=== PATIENT | female | born 1960 | race Caucasian/White ===

== ENCOUNTER 2020-02-29 12:04 | Outpatient (CLI) | payer BC, SELFPAY ==
--- NOTE | 2020-02-29 12:08 | XR_ITS ---
WS: [id number] RIGHT KNEE: 3 VIEW(S) TECHNIQUE: AP, oblique(s) and lateral. HISTORY: ACUTE PAIN OF RIGHT KNEE COMPARISON: None available. No fracture or dislocation. Mild narrowing of all 3 compartments. Lucency in the posterior superior surface of the patella. Small suprapatellar joint effusion. No soft tissue abnormality. XR/XR knee RT 3V* [id number] IMPRESSION: 1. Mild tricompartment osteoarthritis. 2. Osteochondral lesion superior posterior surface of the patella and small smitha int effusion.
== END 2020-02-29 12:05 | disposition home or self-care (01) ==
LOC: RADWPI 12:08
PROVIDERS: Visit Provider Nurse Practitioner Family
DX: M17.11 Unilateral primary osteoarthritis, right knee (principal); M25.861 Other specified joint disorders, right knee; M25.461 Effusion, right knee
CPT/HCPCS: 73562

== ENCOUNTER 2020-04-10 14:04 | Outpatient (CLI) | payer BC, SELFPAY ==
--- NOTE | 2020-04-10 14:22 | XRR_ITS ---
PROCEDURE INFORMATION: Exam: XR Right Knee Exam date and time: 04/10/2020 2:39 PM Age: 59 years old Clinical indication: Pain; Knee; Right; Additional info: Knee pain TECHNIQUE: Imaging protocol: XR Right knee. Views: Frontal, lateral, and oblique views. COMPARISON: CR XR knee RT 3V* [id number] 02/29/2020 12:13 PM FINDINGS: Bones/joints: Mild lateral compartment predominate narrowing. Small-moderate knee joint effusion. Soft tissues: Normal. XR/XR knee RT 3V* [id number] IMPRESSION: 1. Lateral compartment chondromalacia or meniscal degeneration. 2. Small-moderate knee joint effusion.
== END 2020-04-10 14:05 | disposition home or self-care (01) ==
LOC: RAD 14:08
PROVIDERS: Visit Provider Specialist
DX: M25.561 Pain in right knee (principal); M25.461 Effusion, right knee
CPT/HCPCS: 73562

== ENCOUNTER 2020-04-18 11:42 | Outpatient (CLI) | payer BC, SELFPAY ==
--- NOTE | 2020-04-18 11:45 | MR_ITS ---
WS: [id number] MRI RIGHT KNEE HISTORY: M25.561 Pain in right knee COMPARISON: 04/10/2020 Anterior cruciate ligament: Intact. Posterior cruciate ligament: Intact. Medial collateral ligament: Increased T2 signal surrounding the MCL. No full-thickness tear. Posterior lateral corner structures: Increase fluid surrounding the popliteus tendon. Medial menisci: Intact. Normal signal, size and shape. Lateral meniscus: Horizontal tear in the posterior horn extends to the inferior articular surface. Th ere is increased T2 signal diffusely throughout the anterior horn. The meniscus is partially extruded from the joint line. Extensor mechanism: Distal quadriceps tendon and patellar tendons are intact. Fluid and soft tissue: Large suprapatellar joint effusion. There is soft tissue edema surrounding the knee. Large lobulated complex Leger's cyst. Osseous and articular structures: Patellofemoral compartment: Loss of cartilage over the patellar eminence and portions of the medial a nd lateral facet. Subchondral edema at the patellar eminence. No fracture. Medial compartment: Mild medial compartment. Mild thinning of the cartilage. Lateral compartment: Moderate narrowing of the lateral compartment. Loss of cartilage. Full thickness cartilage defect along the surface of the femoral condyle with the findings millimeters. There is ad ditional marrow edema in the lateral tibial plateau. MR/MR knee RT wo con* [id number] IMPRESSION: 1. Moderate internal derangement lateral compartment with loss of cartilage, s ubchondral edema and joint space narrowing. Meniscus is partially extruded from the joint. 2. Horizontal tear posterior horn lateral meniscus to the inferior articular s urface. 3. Large suprapatellar joint effusion. 4. Large complex Leger's cyst. 5. Mild MCL sprain. 6. Fluid surrounding the popliteus tendon but no tear appreciated. 7. Moderate chondromalacia patella and subchondral edema near the patellar elie nence.
== END 2020-04-18 11:43 | disposition home or self-care (01) ==
LOC: RADSHAW 11:44
PROVIDERS: PCP Nurse Practitioner Family; Visit Provider Specialist
DX: R60.0 Localized edema (principal); S83.281A Other tear of lateral meniscus, current injury, right knee, initial encounter; M25.461 Effusion, right knee; M71.21 Synovial cyst of popliteal space [Baker], right knee; S83.411A Sprain of medial collateral ligament of right knee, initial encounter; M22.41 Chondromalacia patellae, right knee; X58.XXXA Exposure to other specified factors, initial encounter
CPT/HCPCS: 73721

== ENCOUNTER 2020-04-25 13:09 | Outpatient (CLI) | payer BC, SELFPAY | END 2020-04-25 13:10 | disposition home or self-care (01) | LOC: SPT 13:10 | PROVIDERS: PCP Nurse Practitioner Family; Visit Provider Specialist | DX: Z46.89 Encounter for fitting and adjustment of other specified devices (principal); M17.11 Unilateral primary osteoarthritis, right knee | CPT/HCPCS: 97760; L1812 ==

== ENCOUNTER 2020-05-08 06:00 | Outpatient (RCR) | payer BC, SELFPAY | END 2020-05-29 23:59 | disposition home or self-care (01) | LOC: APT 06:00 | PROVIDERS: PCP Nurse Practitioner Family; Referring Provider Specialist; Visit Provider Specialist | DX: M17.11 Unilateral primary osteoarthritis, right knee (principal) | CPT/HCPCS: 97110; 97161 ==

== ENCOUNTER 2020-05-22 09:00 | Outpatient (CLI) | payer BC, SELFPAY ==
[2020-05-22 10:23] VITALS: BMI 36.6
--- NOTE | 2020-05-22 10:50 | ANES.PREANE2 ---
Pre-Anesthetic Assessment Pre-Anesthetic Assessment: Height/Weight: Height 1.68 m Weight 102.965 kg Preop Diagnosis: DJD right knee Proposed Procedure: Operation Date: 06/04/20 10:50 Proposed Procedures p Total Knee Arthroplasty 12248 M17.11(Right) - Padmini Sosa MD Familial anesthetic complications: None Social: Social History: Tobacco and No alcohol Exam: Pre-Anes Outpt Exam: alert, oriented x 3, clear to auscultation bilaterally and regular rate & rhythm Airway: Cervical ROM: WNL (extension sometimes induces vertigo) MP: 2 Dentition: Other (one missing) Pulmonary: Pulmonary: COPD CV/HEM: CV/HEM: HTN Musc/skel: Musc/skel: OA/DJD Comments: neck pain, arm pain at night d/t positioning Anesthetic Plan: ASA status: 2 Anesthesia: General and Regional (specify below) Risk of > 500 ml blood loss (7ml/kg in children): No PFSH Anesthesia PFSH: Medical History (Updated 05/20/20 @ 12:54 by Padmini Sosa MD) COPD (chronic obstructive pulmonary disease) Hypertension Surgical History History of partial hysterectomy Hx of knee surgery Family History Mother Hypertension Father Hypertension Social History Smoking and tobacco status: current every day smoker Alcohol intake: current Data Anesthesia Cardiac Studies: No Data to Display
[2020-05-22 10:55] LABS: Basophils # 0.1 10^3/uL (0.0-0.1); Basophils % 0.7 %; Eosinophils # 0.2 10^3/uL (0.0-0.8); Eosinophils % 2.2 %; Hemoglobin 15.5 g/dL (11.5-15.3); Lymphocytes # 2.4 10^3/uL (0.8-4.8); Lymphocytes % 23.9 %; Mean Corpuscular Hemoglobin 31.5 pg (28.0-34.0); Mean Corpuscular Volume 95.5 fL (81-99); Mean Platelet Volume 8.6 fL (7.4-10.4); Monocytes % 10.1 %; Neutrophils # 6.27 10^3/uL (1.8-7.7); Neutrophils % 62.7 %; Nucleated Red Blood Cells % 0 %; Platelet Count 297 10^3/cmm (130-400); Red Blood Count 4.92 10^6/uL (4.1-5.3); Red Cell Distribution Width 11.9 % (12.1-15.1)
[2020-05-22 11:12] LABS: Alanine Aminotransferase 19 U/L (0-33); Albumin Level 4.4 g/dL (3.5-5.2); Alkaline Phosphatase 73 IU/L (35-105); Aspartate Amino Transferase 15 U/L (0-32); Blood Urea Nitrogen 11 mg/dL (8-23); Calcium 10.1 mg/dL (8.5-10.5); Carbon Dioxide 27 mmol/L (22-29); Chloride 101 mmol/L (98-107); Globulin 2.6 g/dL (1.3-4.6); Glomerular Filtration Rate 85.4 mL/min (90-130); Glucose 91 mg/dL (65-115); Osmolality Calculated 285 mOsm/kg (285-295); Sodium 138 mmol/L (136-145); Total Bilirubin 0.4 mg/dL (0.15-1.2)
--- NOTE | 2020-06-02 17:57 | SUR.PREOP ---
Patient called today and stated that she was going to have to cancel surgery due to her grand daughter that lives with her tested positive for covid, i stated that i would relay the message tomorrow with dr crews's office and patient stated that she left a message today on the office's answering machine
== END 2020-05-22 09:01 | disposition home or self-care (01) ==
LOC: OPS 04-10 16:22
PROVIDERS: PCP Nurse Practitioner Family; Visit Provider Specialist
DX: M17.11 Unilateral primary osteoarthritis, right knee (principal); J44.9 Chronic obstructive pulmonary disease, unspecified; I10 Essential (primary) hypertension; F17.210 Nicotine dependence, cigarettes, uncomplicated; Z53.8 Procedure and treatment not carried out for other reasons
CPT/HCPCS: 36415; 80053; 85025

== ENCOUNTER → 2020-05-24 12:05 | Outpatient (BNVA) | payer BC, SELFPAY | PROVIDERS: PCP Nurse Practitioner Family; Visit Provider Specialist | DX: M17.11 Unilateral primary osteoarthritis, right knee (principal); R39.9 Unspecified symptoms and signs involving the genitourinary system | CPT/HCPCS: 80053; 81000; 87081 ==

== ENCOUNTER → 2020-05-31 11:08 | Outpatient (BNVA) | payer BC, SELFPAY | PROVIDERS: PCP Nurse Practitioner Family; Visit Provider Specialist | DX: Z11.59 Encounter for screening for other viral diseases (principal) | CPT/HCPCS: 87635 ==

== ENCOUNTER → 2020-07-01 12:20 | Outpatient (BNVA) | payer BC, SELFPAY | PROVIDERS: PCP Nurse Practitioner Family; Visit Provider Specialist | DX: Z11.59 Encounter for screening for other viral diseases (principal) | CPT/HCPCS: 73560; 73565; 80053; 87081 ==

== ENCOUNTER → 2020-07-04 11:33 | Outpatient (BNVA) | payer BC, SELFPAY | PROVIDERS: PCP Nurse Practitioner Family; Visit Provider Specialist | DX: Z11.59 Encounter for screening for other viral diseases (principal) | CPT/HCPCS: 87635 ==

== ENCOUNTER 2020-07-09 10:46 | Observation (INO) | payer BC, SELFPAY ==
[2020-07-03 10:22] VITALS: BMI 36.6
[2020-07-03 10:46] LABS: Basophils # 0.1 10^3/uL (0.0-0.1); Basophils % 0.6 %; Eosinophils # 0.2 10^3/uL (0.0-0.8); Eosinophils % 1.7 %; Hematocrit 46.2 % (37.0-47.0); Hemoglobin 15.8 g/dL (11.5-15.3); Lymphocytes # 2.4 10^3/uL (0.8-4.8); Lymphocytes % 25.1 %; Mean Corpuscular HGB Conc 34.2 g/dL (30.0-36.0); Mean Corpuscular Hemoglobin 31.3 pg (28.0-34.0); Mean Corpuscular Volume 91.7 fL (81-99); Mean Platelet Volume 8.6 fL (7.4-10.4); Monocytes # 1.1 10^3/uL (0.2-0.9); Monocytes % 11.2 %; Neutrophils # 5.72 10^3/uL (1.8-7.7); Neutrophils % 61.2 %; Nucleated Red Blood Cells % 0 %; Platelet Count 317 10^3/cmm (130-400); Red Blood Count 5.04 10^6/uL (4.1-5.3); Red Cell Distribution Width 11.8 % (12.1-15.1); White Blood Count 9.4 10^3/uL (4.0-10.0)
[2020-07-03 11:01] LABS: Alanine Aminotransferase 23 U/L (0-33); Albumin Level 4.3 g/dL (3.5-5.2); Alkaline Phosphatase 82 IU/L (35-105); Anion Gap 14.1 (5-19); Aspartate Amino Transferase 21 U/L (0-32); Blood Urea Nitrogen 11 mg/dL (8-23); Carbon Dioxide 28 mmol/L (22-29); Chloride 96 mmol/L (98-107); Globulin 2.6 g/dL (1.3-4.6); Glomerular Filtration Rate 85.1 mL/min (90-130); Glucose 123 mg/dL (65-115); Osmolality Calculated 279 mOsm/kg (285-295); Potassium 4.1 mmol/L (3.5-5.1); Sodium 134 mmol/L (136-145); Total Bilirubin 0.5 mg/dL (0.15-1.2); Total Protein 6.9 g/dL (6.6-8.7)
--- NOTE | 2020-07-03 11:16 | ANES.PREANE2 ---
Pre-Anesthetic Assessment Pre-Anesthetic Assessment: Height/Weight: Height 1.68 m Weight 102.965 kg Preop Diagnosis: DJD right knee Proposed Procedure: Operation Date: 07/09/20 07:00 Proposed Procedures p Total Knee Arthroplasty 29862 M17.11(Right) - Padmini Sosa MD Familial anesthetic complications: None Social: Social History: Tobacco and No alcohol Exam: Pre-Anes Outpt Exam: alert, oriented x 3, clear to auscultation bilaterally and regular rate & rhythm Airway: Cervical ROM: WNL MP: 1 Dentition: Full Pulmonary: Pulmonary: COPD CV/HEM: CV/HEM: HTN Musc/skel: Musc/skel: OA/DJD Anesthetic Plan: ASA status: 3 Anesthesia: General and Regional (specify below) (adductor) Risk of > 500 ml blood loss (7ml/kg in children): No PFSH Anesthesia PFSH: Medical History COPD (chronic obstructive pulmonary disease) Hypertension Surgical History History of partial hysterectomy Hx of knee surgery Family History Mother Hypertension Father Hypertension Social History Smoking and tobacco status: current every day smoker Alcohol intake: current Data Anesthesia CBC & Chem 7: 07/03/20 10:35 07/03/20 10:35 Other Labs: Laboratory Results - last 48 hr 07/03/20 07/03/20 10:35 10:35 WBC 9.4 RBC 5.04 Hgb 15.8 H Hct 46.2 MCV 91.7 MCH 31.3 MCHC 34.2 RDW 11.8 L Plt Count 317 MPV 8.6 Neut % (Auto) 61.2 Lymph % (Auto) 25.1 Mccormick % (Auto) 11.2 Eos % (Auto) 1.7 Baso % (Auto) 0.6 Neut # (Auto) 5.72 Lymph # (Auto) 2.4 Mccormick # (Auto) 1.1 H Eos # (Auto) 0.2 Baso # (Auto) 0.1 Nucleated RBC % (auto) 0 Nucleated RBCs # 0.0 Sodium 134 L Potassium 4.1 Chloride 96 L Carbon Dioxide 28 Anion Gap 14.1 BUN 11 Creatinine 0.7 GFR Calculation 85.1 L Glucose 123 H Calculated Osmolality 279 L Calcium 10.0 Total Bilirubin 0.5 AST 21 ALT 23 Alkaline Phosphatase 82 Total Protein 6.9 Albumin 4.3 Globulin 2.6 Cardiac Studies: No Data to Display
[2020-07-09] VITALS (28 sets, daily range): BP systolic 103–143; BP diastolic 60–87; PULSE 68–85; RESP 16–185; TEMP 36.4–37.1; O2SAT 91–99
[2020-07-09] MEDS: CELEcoxib 200 mg Capsule 400 MG PO (07:03)
[2020-07-09] MEDS: sodium chloride 0.9% 1,000 ML 30 ML IV (07:04)
[2020-07-09] MEDS: vancomycin 1,000 MG in sodium chloride 0.9% 250 ML 250 MG IV (07:10)
[2020-07-09] MEDS: midazolam 1 mg/mL INJ 2 mL 2 MG IVP (07:25)
--- NOTE | 2020-07-09 07:25 | P.ANESUD_ITS ---
Pre-Anesthetic Update Pre-Anesthetic Assessment: Date of Surgery/Procedure: 07/09/20 Preop Betsy gnosis: DJD right knee Proposed Procedure: Operation Date: 07/09/20 07:00 Proposed Procedures p Total Knee Arthroplasty 23720 M17.11(Right) - Padmini Sosa MD Any changes to Pre-Anesthetic Assessment?: No Last Intake: Intake Last Liquid Date 07/08/20 Last Liquid Time 23:00 Last Solid Date 07/08/20 Last Solid Time 19:00 Vitals: Temperature 97.6 F 07/09/20 06:50 Temperature Source Temporal Artery S can 07/09/20 06:50 Pulse Rate 72 07/09/20 06:50 Respiratory Rate 18 07/09/20 06:50 Blood Pressure 130/85 07/09/20 06:50 Blood Pressure Melody n 100 07/09/20 06:50 Pulse Oximetry 95 07/09/20 06:50 Oxygen Delivery Me thod 07/09/20 06:50 Exam: Pre-Anes Outpt Exam: alert, oriented x 3, clear to auscultation bilaterally and regular rate & rhythm Cardiac Studies: No Data to Display
--- NOTE | 2020-07-09 07:37 | PC.NURSE ---
0725 Time out done for nerve block for right total knee surgery. O2 on at 2L per [place], cardiac specialist on, and O2 sat probe on. Vital signs remained stable throughout procedure.
--- NOTE | 2020-07-09 07:53 | ANES.PROC ---
Anesthesia Procedures Procedure/Date: 07/09/20 Nerve Block ^: Nerve Block 1: Main Anesthesia: general anesthesia Time Out Performed: Yes Consent: requested by attending/covering physician, from patient, from other, risks and benefits reviewed, patient agrees to proceed and emergency procedure Nerve block location: adductor canal (R) Anesthesia monitors applied: pulse oximetry, EKG, BP cuff and oxygen Nerve block position: supine Anesthetic Used: ropivicaine 0.5% and with decadron (4 mg) Amount of anesthesia used (mL): 30 Ultrasound used to: visualize and ID femerol nerve Nerve Stimulator Used?: No Interscalene/Femoral BLK: 4 stimuplex 21 g needle used for position and inplane approach, visualize local anesthetic spread and no vascular puncture identified Injection: neg aspiration of heme and paresthesia +/- Patient Tolerated Procedure: well and no complications Complications: none
--- NOTE | 2020-07-09 07:58 | W.PM.OPSUD ---
Surgery/Procedure H&P Update DATE OF PROCEDURE: July 09, 2020 DATE H&P PERFORMED: 07/01/20 H&P UPDATE INFORMATION: I have reviewed H&P completed within last 30 days, I have examined patient prior to procedure, No changes to prior documentation and H&P is in [facility] EMR on date indicated PREOP DIAGNOSIS: DJD right knee PLANNED PROCEDURE: Operation Date: 07/09/20 07:00 Proposed Procedures p Total Knee Arthroplasty 78881 M17.11(Right) - Padmini Sosa MD Related Problem List Diagnoses (1) Primary osteoarthritis of right knee:
[2020-07-09] MEDS: vancomycin 1,000 MG SDV 1000 MG IRRIGATION ×2 (08:44→08:46)
[2020-07-09] MEDS: vancomycin 1,000 MG SDV 1000 MG XX (08:45)
--- NOTE | 2020-07-09 10:05 | SUR.OPER ---
Family Notified Of Patient's Status Via Phone.
[2020-07-09] MEDS: fentaNYL 50 mcg/mL INJ 2mL IVP ×2 (10:41→10:57)
--- NOTE | 2020-07-09 10:45 | XR_ITS ---
WS: [id number] XR knee RT 3V* [id number] REASON FOR EXAM: Status post total knee arthroplasty FINDINGS: Total right knee arthroplasty. Parts of the surgical appliance are in proper position and alignment. There is no significant bony abnormality. XR/XR knee RT 3V* [id number] IMPRESSION: Total right knee arthroplasty without significant abnormality.
--- NOTE | 2020-07-09 10:53 | P.OP_ITS ---
Operative Report Date of procedure: July 09, 2020 Pre-op Diagnosis: Primary osteoarthritis right knee Post-op diagnosis: same Post-op Findings: Significant degenerative osteoarthritis of the right knee Procedure Done: Right total knee arthroplasty Implants: The [place] total knee system with a size 4 triathlon beaded posterior stabilized femur right, a triathlon titanium tibial component size 4 beaded, a triathlon X3 posterior stabilized tibial bearing insert size 4 x 13 mm and a beaded triathlon titanium asymmetric patella size 32 x 10 mm Specimens removed/disposition: Bone, disposed of Pathology: none sent Surgeon: Padmini Sosa Leadership Development Manager: [facility] OR technicians Anesthesia: General (Intubated, ASA 3 with regional block) Estimated blood loss (mL): 25 Tourniquet time (min): 107 Tourniquet time: At 250 mmHg IV fluids (mL): 1,300 Urine output (mL): 100 Complications: None Findings: Significant degenerative osteoarthritis with large osteophytes Condition: stable Disposition: PACU (Then to floor for postoperative rehabilitation and pain management) Brief History: This 60-year-old woman presented with complaints of severe right knee pain. X- ray findings were consistent with severe degenerative osteoarthritis of the right knee. The patient was unresponsive to conservative measures, and she wished to proceed with total knee arthroplasty. Risks and complications were discussed with her. Preoperatively, consents were signed. The questions were answered. The patient was comfortable with the process and wished to proceed. Procedure: The patient was brought to the operating theater, and after undergoing adequate general intubated anesthesia with supplemental regional block, ASA3, the right lower extremity was prepped with Dura-Prep and draped in usual fashion following placement of a tourniquet high on the leg. The leg was then draped free. Following prepping and draping, the leg was exsanguinated, and the tourniquet was elevated to 250 mmHg for a total tourniquet time of 107 minutes. Prior to elevation of the tourniquet, but following exposure of the site of surgery, a surgical pause was performed. At the time of the surgical pause, we confirmed the site and side of surgery. Additionally, we confirmed the appropriate and timely administration of preoperative antibiotics, vancomycin 1 g and transexemic acid 1 g. The availability of equipment was confirmed, and the patient's identity was verbalized as well. Following the surgical pause, an incision was made centering over the patella continuing proximally and distally as necessary to allow access to the knee joint. Dissection continued through skin and soft tissues using a scalpel. Hemostasis was obtained using electrocautery. The skin incision was followed by a median parapatellar arthrotomy. The leg was extended and the patella was everted. Following this, the leg was returned to flexed position. The distal femur was exposed and a drill hole was made in this for placement of the distal femoral jig. The distal femoral jig was set at 5? of valgus. The distal femoral cutting block was then placed in appropriate position, and an margaret wing was used to confirm an appropriate amount of distal femur would be resected. The distal femoral resection was accomplished with 8 mm of bone being resected distally. After the distal femoral resection had been accomplished, the femur was measured and it measured a size 4. Medial lateral dimension also measured a size 4. A size 4 femoral cutting block was placed in position, and we were then able to accomplish the anterior, posterior and chamfer cuts. This jig was then removed and the notch guide was placed in position. With the notch guide in appropriate position, the notch was excised including resection of the anterior and posterior cruciate ligaments. This notch was to allow for the posterior stabilized femoral component. At this point, the femur was prepared and attention was directed to the proximal tibia. The posterior knee retractor was placed along with medial and lateral retractors. Further resection of the menisci was accomplished as we had better visualization. A complete meniscectomy was performed both medially and laterally with care being taken to protect the popliteus. Retractors were then placed so that the proximal tibia was well visualized. A drill hole was then made in the tibia for placement of the intramedullary guide. This guide was placed so that approximately 2 mm of bone would be resected from the deficient medial tibial plateau. The intramedullary guide was utilized supplemented with an extramed ullary guide to assure appropriate alignment for the proximal tibial resection. The proximal tibial jig was then evaluated, pinned in position, and the proximal tibial resection was accomplished without difficulty. The jig was removed and the proximal tibia was measured. It measured a size 4. We then attempted a trial reduction with a size 4 by 11 mm insert. This was felt to be too loose. Trial reduction was then once again accomplished with a size 4 x 13 mm posterior stabilized insert. The femoral component was placed in position for the trial reduction, and the knee was placed through range of motion. There was excellent stability with excellent varus-valgus alignment with appropriate patellar tracking. This was felt to be the appropriate size insert. There was full extension and flexion without lift off and the rotation of the tibia was marked. Alignment was checked from the hip to the ankle, and this was noted to be appropriate as well. Attention was then directed to the patella. The patella was measured with a caliper. We resected sufficient patella to leave approximately 14 mm of patella remaining. Measurements of the patella then indicated that a size asymmetric 32 mm x 10 mm was the appropriate patellar size. We then placed the jig to drill for the 3 pegs of the press-fit patella, and these drill holes were made without incident. A trial patella was then placed, and the knee was placed through range of motion. The patella was noted to track nicely without evidence of subluxation. The femur was prepared for a press-fit femur by drilling 2 holes for the femoral pegs. All trial components were subsequently removed. The tibial tray was then pinned into position, and we broached the tibia for the stem of the tibial component. Subsequently, 4 drill holes were made for placement of the press-fit tibia. This was accomplished without difficulty. Care was taken to assure appropriate rotation of the tibia as well as appropriate position on the proximal tibia. The tibial tray was completely seated on the proximal tibia. Following broaching, the tibial guide was removed, and all surfaces were copiously irrigated. The surfaces were then dried and a bone plug was placed into the distal femur. Exparel was also injected at this point. The Tritanium tibia was impacted into position. The beaded femur was then impacted into position in a cementless fashion. The tibial insert was placed. The patella was pressed into position with a patellar clamp. The knee was irrigated with 20 mL of Betadine and 500 mL of normal saline, and this was allowed to remain in the knee for 3-4 minutes. The knee was then copiously irrigated and suctioned dry. Attention was then directed to closure. Closure was accomplished with 0 Vicryl in the fascial tissues, 2-0 Monocryl was used in the subcutaneous tissues, and the skin was closed with skin maria d and Exofin. A sterile dressing was then placed consisting of Telfa, 4 x 4's, ABDs, sterile soft roll, and an Will wrap. The patient was returned the Recovery Room in a satisfactory condition. X-rays were obtained there. The patient will be discharged to the floor for postoperative rehabilitation and pain management. She'll be under observation status with plans to discharge home with home health. Associated Problem List Diagnoses (1) Primary osteoarthritis of right knee:
[2020-07-09] MEDS: morphine 4 mg/mL SDV 1 mL 2 MG IVP (11:02)
--- NOTE | 2020-07-09 11:57 | SUR.PHASEI ---
1119 PT TO FLOOR AWAKE ALERT MOVES SELF TO BED WITH ASSIST OF ONE NURSE SUPPORTING SURGICAL LEG, DRESSING D/I FIRST ICE TO KNEE, ALFONSO TO DD WITH YELLOW URINE NOTED VSS. CHARGE NURSE AWARE.
[2020-07-09] MEDS: chlorhexidine gluconate 0.12% Btl 473 mL 30 ML MUCOUS MEM ×3 (13:22→23:08)
[2020-07-09] MEDS: sodium chloride 0.9% 1,000 ML 100 ML IV ×2 (13:22→23:17)
[2020-07-09] MEDS: albuterol 8 gm MDI 1 PUFF INHALATION ×2 (16:38→21:50)
--- NOTE | 2020-07-09 17:26 | PM.PACU ---
PACU note Post-Anesthesia Exam: awake and vital signs stable Disposition: admitted
[2020-07-09] MEDS: mupirocin oint 22 gm 1 APPLIC NASAL (17:45)
[2020-07-09] MEDS: sennosides-docusate Tablet 2 TAB PO (17:48)
[2020-07-09] MEDS: calcium carbonate 500 mg Chew Tablet 1000 MG PO (17:48)
[2020-07-09] MEDS: CELEcoxib 200 mg Capsule PO (17:49)
[2020-07-09] MEDS: iron polysaccharide complex 150 mg Capsule PO (17:49)
[2020-07-09] MEDS: oxyCODONE 5 mg IR Tab/Cap PO (18:09)
[2020-07-10] VITALS (11 sets, daily range): BP systolic 103–127; BP diastolic 55–72; PULSE 62–79; RESP 16–21; TEMP 36.7–37.1; O2SAT 92–96
[2020-07-10] MEDS: oxyCODONE 5 mg IR Tab/Cap PO ×3 (00:47→13:09)
[2020-07-10 03:46] LABS: Basophils % 0.1 %; Lymphocytes # 1.1 10^3/uL (0.8-4.8); Lymphocytes % 7.5 %; Mean Corpuscular HGB Conc 33.3 g/dL (30.0-36.0); Mean Platelet Volume 9.2 fL (7.4-10.4); Monocytes # 1.2 10^3/uL (0.2-0.9); Monocytes % 8.5 %; Neutrophils % 83.6 %; Nucleated Red Blood Cells % 0 %; Platelet Count 224 10^3/cmm (130-400); Red Blood Count 3.75 10^6/uL (4.1-5.3); Red Cell Distribution Width 11.8 % (12.1-15.1); White Blood Count 14.4 10^3/uL (4.0-10.0)
[2020-07-10 04:12] LABS: Anion Gap 12.9 (5-19); Blood Urea Nitrogen 14 mg/dL (8-23); Carbon Dioxide 26 mmol/L (22-29); Chloride 100 mmol/L (98-107); Creatinine Clr Calc Pharmacy 119.3249; Glomerular Filtration Rate 101.6 mL/min (90-130); Glucose 127 mg/dL (65-115); Osmolality Calculated 282 mOsm/kg (285-295); Potassium 3.9 mmol/L (3.5-5.1); Sodium 135 mmol/L (136-145)
[2020-07-10] MEDS: vancomycin 1,000 MG in sodium chloride 0.9% 250 ML 250 MG IV (06:07)
[2020-07-10] MEDS: CELEcoxib 200 mg Capsule PO (06:08)
[2020-07-10] MEDS: albuterol 8 gm MDI 1 PUFF INHALATION ×2 (07:36→11:17)
[2020-07-10] MEDS: aspirin 325 mg EC Tablet PO (08:47)
[2020-07-10] MEDS: multivitamin therapeutic Tablet 1 TAB PO (08:47)
[2020-07-10] MEDS: amlodipine 10 mg Tablet PO (08:47)
[2020-07-10] MEDS: cholecalciferol (vitamin D3) 1,000 unit Tablet 1000 UNIT PO (08:47)
[2020-07-10] MEDS: hydroCHLOROthiazide 25 mg Tablet PO (08:47)
[2020-07-10] MEDS: sennosides-docusate Tablet 2 TAB PO (08:47)
[2020-07-10] MEDS: lisinopril 10 mg Tablet PO (08:47)
[2020-07-10] MEDS: calcium carbonate 500 mg Chew Tablet 1000 MG PO (08:50)
[2020-07-10] MEDS: iron polysaccharide complex 150 mg Capsule PO (08:50)
[2020-07-10] MEDS: sodium chloride 0.9% 1,000 ML 100 ML IV (08:51)
[2020-07-10] MEDS: chlorhexidine gluconate 0.12% Btl 473 mL 30 ML MUCOUS MEM ×2 (09:10→13:12)
[2020-07-10] MEDS: mupirocin oint 22 gm 1 APPLIC NASAL (09:10)
--- NOTE | 2020-07-10 13:20 | PC.CHAP ---
Pastoral Care Encounter/Spiritual Assessment Type of Contact [] Declined truck driver heavy visit [] Patient/Family/Request visit [] Outpatient visit [] Follow-up visit [] Physician referral [] Code/Alert [xx] Routine visit [] Staff referral [] Actively dying [] Patient sleeping [] Family support [] [] Out of room [] Palliative care [] [] Receiving care in room [] Pre-surgical visit [] Trauma [] Long length of stay [] ICU visit [] Other: Relational/Emotional Strength [xx] Patient feels connected with others/family/visitors/staff [] Distress [] Loneliness/isolation [] Abandonment Spirituality of Patient [xx] Person of Deepa [xx] Attends [employer] of their Deepa [xx] Believes in Prayer [xx] Reads Bible or Worship materials [] There are Spiritual issues to be addressed Varnish Mixer Interventions [xx] Prayer [xx] Active listening [xx] Non-anxious presence [] Spiritual/emotional support [] Crisis/trauma care [] Spiritual counseling [] Bereavement support [] Provided bereavement packet [] Provided Bible/devotional materials [] Provided toy/stuffed animal, coloring book to patient or family member [] Provided Communion [] Anointing/Chili [] Salvation [xx] Completed spiritual assessment [] Other: Impact on Illness or Injury [] Angry [] Fearful [] Anxious [] Often cries [] Exhaustion [] Unable to work [] Unable to attend nondenominational [] Unable to walk/stand [] Unable to read [] Unable to drive [] Unable to eat/drink [] Unable to sleep [] Unable to be with family [] Patient intubated [] Other: Summary Pt feels great after knee susrgery and will probably be discharged 07/11 per her statement. She was eating lunch so Varnish Mixer did not stay long afater quick prayer. Time spent with patient 6 minutes
--- NOTE | 2020-07-10 14:38 | P.DS_ITS ---
Discharge Providers Date of Admission: 07/09/20 10:46 Date of Discharge: July 10, 2020 Attending Provider at Admission: Padmini Sosa MD Attending Provider at Discharge: Padmini Sosa MD Primary Care Provider: Karen Davis NP Diagnoses at Discharge Discharge Diagnosis (1) Primary osteoarthritis of right knee: Status: Acute Reason for Visit Reason for Visit: Osteoarthritis right knee Hospital Course Hospital Course This 60-year-old woman presented for total knee arthroplasty. She underwent same day surgery. She was admitted postoperatively to observation status for pain management, monitoring, and the beginning of her physical therapy and rehabilitation. On the first postoperative day, the patient was doing very well. Her incision was benign. There was no evidence of infection. The patient was working well with physical therapy and was felt to be independent. She therefore was discharged to home with home health. Physical Exam Const: COMMON NORMALS: no acute distress, average body habitus, patient oriented x3 and alert GENERAL APPEARANCE: cooperative and comfortable ORIENTATION/CONSCIOUSNESS: Yes awake HENMT: COMMON NORMALS: normocephalic and atraumatic HEAD & SCALP: normo cephalic and atraumatic Eye: GENERAL EYE: appearance normal, both eyes and all related structures Chest: COMMONS NORMALS: normal inspection of the chest Resp: COMMON NORMALS: normal respiratory effort EFFORT & INSPECTION: Yes able to speak in complete sentences and Yes symmetric chest movement Extremity: RIGHT LOWER EXTREMITY: Yes knee joint Right knee: Yes inspection (Incision is benign with minimal swelling), Yes palpation (Calf is soft and nontender.), Yes ROM (Not assessed.) and Yes neurovascular exam (Intact distal to the incision.) Neuro: COMMON NORMALS: patient oriented x3 SENSORIUM/ORIENTATION: Yes alert Psych: COMMON NORMALS: mental status grossly normal APPEARANCE: Yes grossly normal ATTITUDE: Yes calm and Yes engaged ATTENTION/CONCENTRATION: Yes attention grossly intact Skin: COMMON NORMALS: no rashes or lesions noted GENERAL SKIN EXAM: no rashes or lesions noted Urinary Catheter Management^: Moyer: Cath Placed During This Visit: yes, but has since been removed by the nurse Reason for Continuing Indwelling Catheter: Decision to DC Catheter Urinary Catheter Date of Insertion: 07/09/20 Urinary Catheter Time of Insertion: 08:20 Date Urinary Catheter Removed: 07/10/20 Time Urinary Catheter Discontinued: 06:30 Discharge Data Data Completed and Pending: Completed Studies During Hospitalization Category Date Time Status XR knee RT 3V* [id number] Urgent Exams 07/09/20 10:45 Completed Pending at discharge Category Date Time Status Complete Blood Co unt w/Auto AM LABS Lab 07/11/20 04:00 Ordered Complete Blood Co unt w/Auto AM LABS Lab 07/12/20 04:00 Ordered Labs from last 24 hours 07/10/20 07/10/20 02:19 02:19 WBC 14.4 H RBC 3.75 L Hgb 12.0 Hct 36.0 L MCV 96.0 MCH 32.0 MCHC 33.3 RDW 11.8 L Plt Count 224 MPV 9.2 Neut % (Auto) 83.6 Lymph % (Auto) 7.5 [place] % (Auto) 8.5 Eos % (Auto) 0.0 Baso % (Auto) 0.1 Neut # (Auto) 12.00 H Lymph # (Auto) 1.1 [place] # (Auto) 1.2 H Eos # (Auto) 0.0 Baso # (Auto) 0.0 Nucleated RBC % (a uto) 0 Nucleated RBCs # 0.0 Sodium 135 L Potassium 3.9 Chloride 100 Carbon Dioxide 26 Anion Gap 12.9 BUN 14 Creatinine 0.6 GFR Calculation 101.6 Glucose 127 H Calculated Osmolal ity 282 L Calcium 9.0 Vitals: Last Vital Signs Temp 98.7 F 07/10/20 08:00 Pulse 78 07/10/20 11:26 Resp 16 07/10/20 13:09 BP 126/70 07/10/20 11:26 Pulse Ox 94 07/10/20 11:26 Discharge Plan Discharge Patient Disposition: Home Health Service Condition: Stable Prescriptions: New acetaminophen 500 mg Tablet 1,000 mg PO Q8H Qty: 0 RF: 0 celecoxib 200 mg Capsule 200 mg PO Q12H Qty: 60 RF: 0 aspirin 325 mg Tablet,Delayed Release (Dr/Ec) 325 mg PO DAILY Qty: 0 RF: 0 oxycodone 5 mg tablet 5 mg PO Q4H PRN (Reason: pain) Qty: 30 RF: 0 Continued hydrochlorothiazide 25 mg tablet 25 mg PO DAILY RF: 0 amlodipine 10 mg tablet 10 mg PO DAILY RF: 0 lisinopril 10 mg tablet 10 mg PO DAILY RF: 0 fluticasone propion-salmeterol [Advair Diskus] 100-50 mcg/dose blister with device 1 inh INHALATION BID RF: 0 albuterol sulfate 90 mcg/actuation HFA aerosol inhaler 1 puff INHALATION QID RF: 0 Discharge Orders: Discharge Order (Routine); Ordered 07/10/20 Ordered By: Padmini Sosa Referrals: [facility] ([facility]) [Outside] Padmini Sosa MD [Physician] - 07/22/20 1:45 pm Discharge Diet: Advance as tolerated and Usual diet Discharge Activity: Increase activity as tolerated, Limit activity as instructed, Use walker/crutches as instructed and As per PT/OT instructions Patient Instructions: Oxycodone, Rapid Release (By mouth), Celecoxib (By mouth), Total Knee Replacement (DC) Activity Restrictions/Additional Instructions: Range of motion, gait training, and strengthening with physical therapy. Cover wound as needed. Elevate right lower extremity. Discharge Attestations Time Spent in Discharge Care*: greater than 30 min Quality Metrics Clinical Quality Measures During this hospital stay, did patient experience: None Coding Level of Care Code Acute Basket Patcher for Rosemary Fwd Exam Comprehensive Diagnoses Primary osteoarthritis of right knee M17.11
--- NOTE | 2020-07-10 15:29 | PC.RESP ---
Pt has discharge orders , inhalers left at bedside.
--- NOTE | 2020-07-10 16:18 | PC.NURSE ---
Patient discharged at this time. Patient verbalized understanding of discharge instructions. IV removed intact. Patient tolerated well. Patient wheel chaired to private car at this time.
--- NOTE | 2020-07-10 17:15 | PC.RESP ---
Smoking Cessation and Pulmonary Rehab information sent to patient.
== END 2020-07-10 16:19 | disposition home health service (06) ==
LOC: MEDSURG 10:47
PROVIDERS: Admitting Provider Specialist; PCP Nurse Practitioner Family; Visit Provider Specialist
PROC: (CPT 27447; principal; 2020-07-09 07:00)
DX: M17.11 Unilateral primary osteoarthritis, right knee (principal); Z23 Encounter for immunization; I10 Essential (primary) hypertension; F17.210 Nicotine dependence, cigarettes, uncomplicated; J44.9 Chronic obstructive pulmonary disease, unspecified; Z79.51 Long term (current) use of inhaled steroids
CPT/HCPCS: 27447; 12345; 36415; 51702; 64447; 73562; 76942; 80048; 80053; 85025; 90471; 90686; 94640; 96361; 96365; 96366; 96374; 97110; 97116; 97161; 97165; 97530; C1776; C9290; G0378; J0131; J1100; J1885; J2250; J2270; J2405; J2704; J2710; J2795; J3010; J3370; J3490; J3535; J7030; J7050

== ENCOUNTER → 2020-07-22 13:54 | Outpatient (BNVA) | payer BC, SELFPAY | PROVIDERS: PCP Nurse Practitioner Family; Visit Provider Specialist | DX: M17.11 Unilateral primary osteoarthritis, right knee (principal); Z98.890 Other specified postprocedural states | CPT/HCPCS: 73560; 73565 ==

== ENCOUNTER 2020-08-21 06:00 | Outpatient (RCR) | payer BC, SELFPAY | END 2020-08-29 23:59 | disposition home or self-care (01) | LOC: APT 06:00 | PROVIDERS: Referring Provider Specialist; Visit Provider Specialist | DX: Z47.1 Aftercare following joint replacement surgery (principal); Z96.651 Presence of right artificial knee joint | CPT/HCPCS: 97110; 97163 ==

== ENCOUNTER → 2020-09-02 09:00 | Outpatient (BNVA) | payer OTHER, SELFPAY | PROVIDERS: Visit Provider Specialist | DX: M17.11 Unilateral primary osteoarthritis, right knee (principal); Z98.890 Other specified postprocedural states | CPT/HCPCS: 73560; 73565 ==

== ENCOUNTER → 2020-10-31 09:33 | Outpatient (BNVA) | payer OTHER, SELFPAY | PROVIDERS: Visit Provider Specialist | DX: M17.11 Unilateral primary osteoarthritis, right knee (principal); Z98.890 Other specified postprocedural states | CPT/HCPCS: 73560; 73565 ==

== ENCOUNTER 2020-11-06 10:21 | Outpatient (CLI) | payer OTHER, SELFPAY ==
--- NOTE | 2020-11-06 10:28 | USCV_ITS ---
Mery Anguiano Age: 60 Gender: F : 1960 Exam Date: 11/06/2020 10:45 Ordering Phys: Karen Davis NP Technologist: Jose R Orellana Exam Location: [place] Indication: SCREENING HISTORY: Diameter (cm) AP x Transverse x Length Velocity (cm/s) Waveform Prox Aorta: 2.13 x 1.90 x 54.60 Mid Aorta: 1.69 x 1.80 x 33.30 Distal Aorta: 1.16 x 1.89 x 54.40 Right Iliac Prox: 0.82 x 1.16 x 66.80 Left Iliac Prox: 0.73 x 0.88 x 68.00 Stent Prox Landing x x Aneurysmal Sac Max x x Lt Lat Sac Dim Rt Lat Sac Dim Stent Dist Landing x x Right Iliac Stent x x Left Iliac Stent x x Right Renal Art Left Renal Art FINDINGS: Mild diffuse plaques in the abdominal aorta Normal aortic and the proximal common iliac artery dimensions Normal arterial Doppler flow velocity CONCLUSIONS 1. Normal abdominal aortic dimensions with no evidence of aneurysm 2. Normal proximal common iliac artery dimensions with no evidence of stenosis 3. Mild diffuse plaques in the abdominal aorta Dr Poppy Quinones MD [facility] (Electronically Signed) Final Date: 06 November 2020 23:23 S
--- NOTE | 2020-11-06 10:31 | CT_ITS ---
WS: [id number] LDCT LUNG CANCER SCREENING TECHNIQUE: Noncontrast CT of the chest with coronal and sagittal reformatted images. CLINICAL INFORMATION: TOBACCO USE COMPARISON: CT chest 2013 DLP: 57.16 mGy.cm DIvol: 1.[address] scans at [facility] use at least one of these dose optimization techniques: automat ed exposure control; mA and/or kV adjustment per patient size (includes targeted exams where dose is matched to clinical indication); or iterative reconstruction. FINDINGS: No acute pulmonary infiltrates. No focal pneumonia or pleural fluid. Fibrotic subpleural opacity left upper lobe measuring 8.5 mm. No other suspicious pulmonary parenchymal opacities. Subsegmental atele ctasis in the right middle lobe. Aortic calcification. Coronary calcification. No mediastinal or hilar lymphadenopathy. No axillary ly mphadenopathy. Adrenal glands are normal. Mild thoracic kyphosis with chronic anterior wedging lower thoracic spine. CT/CT lung screening 53799 IMPRESSION: LUNG-RADS: 3-Probably Benign FOLLOW UP: 6 Month LDCT
== END 2020-11-06 10:22 | disposition home or self-care (01) ==
LOC: RAD 10:25
PROVIDERS: Visit Provider Nurse Practitioner Family
DX: R42 Dizziness and giddiness (principal); Z87.891 Personal history of nicotine dependence
CPT/HCPCS: 71271; 76706

== ENCOUNTER → 2020-12-20 11:36 | Outpatient (BNVA) | payer OTHER, SELFPAY | PROVIDERS: PCP Nurse Practitioner Family; Visit Provider Surgery | DX: Z01.812 Encounter for preprocedural laboratory examination (principal); Z20.822 Contact with and (suspected) exposure to COVID-19 | CPT/HCPCS: 87635 ==

== ENCOUNTER 2020-12-24 09:24 | Day surgery (SDC) | payer OTHER, SELFPAY ==
[2020-12-20 07:51] VITALS: BMI 34.7
[2020-12-23 09:21] VITALS: BMI 34.7
--- NOTE | 2020-12-24 09:33 | ANES.PREANE2 ---
Pre-Anesthetic Assessment Pre-Anesthetic Assessment: Height/Weight: Height 1.68 m Weight 97.522 kg Preop Diagnosis: Primary osteoarthritis right knee Proposed Procedure: Operation Date: 12/24/20 11:00 Proposed Procedures p Colonoscopy 76251 K59.00(Not Applicable) - Klever Carmona MD Familial anesthetic complications: None Was Beta Jaz taken within 24 hours: N/A Was Clonidine taken within 24 hours: N/A Last intake: > 8 hrs Social: Social History: Tobacco and No alcohol Exam: Pre-Anes Outpt Exam: alert, oriented x 3, clear to auscultation bilaterally and regular rate & rhythm Airway: Cervical ROM: WNL MP: 3 Dentition: Other (impacted molar removed) Pulmonary: Pulmonary: COPD CV/HEM: CV/HEM: HTN Metabolic: Metabolic: Hyperlipidemia Anesthetic Plan: ASA status: 3 Anesthesia: MAC Risk of > 500 ml blood loss (7ml/kg in children): No PFSH Anesthesia PFSH: Medical History (Updated 12/06/20 @ 10:59 by Klever Carmona MD) COPD (chronic obstructive pulmonary disease) Diverticulitis Hyperlipemia Hypertension Surgical History (Updated 12/06/20 @ 11:03 by Klever Carmona MD) History of incisional hernia repair History of partial hysterectomy Hx of knee surgery Left knee meniscus tear repair S/P partial colectomy Status post colonoscopy Status post right knee replacement Family History Mother Hypertension Father Hypertension Social History (Updated 12/06/20 @ 10:25 by Tati Zaragoza) Smoking and tobacco status: current every day smoker Alcohol intake: current History of recent travel: No Data Anesthesia Cardiac Studies: No Data to Display
[2020-12-24 10:15] VITALS: BP 122/62; PULSE 72; RESP 18; TEMP 36.6; O2SAT 95
[2020-12-24] MEDS: sodium chloride 0.9% 1,000 ML 30 ML IV (10:20)
--- NOTE | 2020-12-24 11:38 | W.PM.OPSUD ---
Surgery/Procedure H&P Update DATE OF PROCEDURE: December 24, 2020 DATE H&P PERFORMED: 12/06/20 H&P UPDATE INFORMATION: I have reviewed H&P completed within last 30 days, I have examined patient prior to procedure and No changes to prior documentation PREOP DIAGNOSIS: Primary osteoarthritis right knee PLANNED PROCEDURE: Operation Date: 12/24/20 11:00 Proposed Procedures p Colonoscopy 00648 K59.00(Not Applicable) - Klever Carmona MD
[2020-12-24 12:00] VITALS: BP 117/75; PULSE 73; RESP 18; TEMP 36.1; O2SAT 97
[2020-12-24 12:25] VITALS: BP 121/87; PULSE 73; RESP 18; O2SAT 96
--- NOTE | 2020-12-24 14:17 | ANE.PACU2 ---
Inpatient post-anesthesia follow up: Airway intact: Yes Vital signs: Temperature 97 F Pulse Rate 73 Respiratory Rate 18 Blood Pressure 121/87 Pulse Oximetry 96 Oxygen Delivery Me thod Room Air Oxygen Flow Rate Fraction of Inspir ed Oxygen Hydration adequate: Yes Nausea and vomiting: No Pain level: 1 Mental status: Baseline
== END 2020-12-24 12:45 | disposition home or self-care (01) ==
PROVIDERS: PCP Nurse Practitioner Family; Visit Provider Surgery
PROC: 0DJD8ZZ Inspection of Lower Intestinal Tract, Via Natural or Artificial Opening Endoscopic (ICD-10-PCS; CPT 45378; principal; 2020-12-24 11:00)
DX: K59.00 Constipation, unspecified (principal); D12.4 Benign neoplasm of descending colon; K64.8 Other hemorrhoids; J44.9 Chronic obstructive pulmonary disease, unspecified; I10 Essential (primary) hypertension; E78.5 Hyperlipidemia, unspecified; F17.210 Nicotine dependence, cigarettes, uncomplicated
CPT/HCPCS: 45380; 88305; 96360; 96361; J2704; J7030

== ENCOUNTER → 2021-01-29 11:44 | Outpatient (BNVA) | payer OTHER, SELFPAY | PROVIDERS: PCP Nurse Practitioner Family; Visit Provider Surgery | DX: D50.9 Iron deficiency anemia, unspecified (principal); Z20.822 Contact with and (suspected) exposure to COVID-19 | CPT/HCPCS: 87635 ==

== ENCOUNTER → 2021-01-30 11:29 | Outpatient (BNVA) | payer OTHER, SELFPAY | PROVIDERS: PCP Nurse Practitioner Family; Visit Provider Specialist | DX: M17.11 Unilateral primary osteoarthritis, right knee (principal); M25.561 Pain in right knee; Z98.890 Other specified postprocedural states | CPT/HCPCS: 73560; 73565 ==

== ENCOUNTER 2021-02-03 07:57 | Outpatient (CLI) | payer OTHER, SELFPAY ==
[2021-02-03] MEDS: iohexol 300 mg/mL 50 mL Btl PO (08:50)
--- NOTE | 2021-02-03 09:30 | CT_ITS ---
WS: [id number] CT ABDOMEN PELVIS TECHNIQUE: Contrast-enhanced CT of the abdomen and pelvis with coronal and sagittal reformatted image s. CLINICAL INFORMATION: K43.2 - Incisional hernia without obstruction or gangrene COMPARISON: CT 6 29,014 DLP: 1108.[address] scans at [facility] use at least one of these dose optimization techniques: automat ed exposure control; mA and/or kV adjustment per patient size (includes targeted exams where dose is matched to clinical indication); or iterative reconstruction. FINDINGS: Diffuse fatty infiltration of the liver. Normal portal vein and splenic vein. Normal GE junction. Nor mal spleen. Lung bases are well aerated. Adrenal glands are normal. Normal renal parenchymal enhancem ent. No hydronephrosis. Small right renal cyst. Mild fatty atrophy of the pancreas. Normal caliber ab dominal aorta. Moderate aortic calcification. Prominent left periaortic lymph node measuring 1.2 x 1. 4 cm. This is unchanged since 2014. Ectatic low ventral abdominal wall/pelvic hernia similar in appearance to 2014. A few abutting loops of sigmoid colon and herniated small bowel. No strangulation. No evidence of small or large bowel obs truction. Grade 1 anterolisthesis L5 on S1 with disc space narrowing. Bilateral spondylolysis L5-S1. CT/CT abdomen pelvis w con* 77389 IMPRESSION: 1. Low abdominal/pelvic ventral abdominal wall hernia with a few loops of abut ting sigmoid colon and slightly herniated small bowel. No evidence of strangula tion. No evidence of small or large bowel obstruction. 2. Mild diffuse fatty infiltration liver. 3. Prominent left periaortic lymph node unchanged since 2013 4. No other significant changes from previous.
[2021-02-03 09:32] LABS: Blood Urea Nitrogen 11 mg/dL (8-23); Glomerular Filtration Rate 85.1 mL/min (90-130)
[2021-02-03] MEDS: iohexol 300 mg/mL 100 mL Btl IV (09:38)
== END 2021-02-03 07:58 | disposition home or self-care (01) ==
PROVIDERS: PCP Nurse Practitioner Family; Visit Provider Surgery
DX: K43.2 Incisional hernia without obstruction or gangrene (principal); K76.0 Fatty (change of) liver, not elsewhere classified; K43.9 Ventral hernia without obstruction or gangrene
CPT/HCPCS: 74177; 82565; 84520; Q9967

== ENCOUNTER 2021-02-04 07:55 | Day surgery (SDC) | payer OTHER, SELFPAY ==
[2021-01-31 13:46] VITALS: BMI 41.9
[2021-02-04 08:42] VITALS: BP 124/72; PULSE 75; RESP 18; TEMP 36.4; O2SAT 96
[2021-02-04] MEDS: sodium chloride 0.9% 1,000 ML 30 ML IV (08:50)
--- NOTE | 2021-02-04 09:13 | W.PM.OPSUD ---
Surgery/Procedure H&P Update DATE OF PROCEDURE: February 04, 2021 DATE H&P PERFORMED: 01/21/21 H&P UPDATE INFORMATION: I have reviewed H&P completed within last 30 days, I have examined patient prior to procedure and No changes to prior documentation PREOP DIAGNOSIS: upper gi symptoms PLANNED PROCEDURE: Operation Date: 02/04/21 09:15 Proposed Procedures p EGD 10795 D50.9(Not Applicable) - Klever Carmona MD
--- NOTE | 2021-02-04 09:16 | ANES.PREANE2 ---
Pre-Anesthetic Assessment Pre-Anesthetic Assessment: Height/Weight: Height 1.68 m Weight 117.934 kg Temp Pulse Resp BP Pulse Ox 97.5 F L 75 18 124/72 96 02/04/21 08:42 02/04/21 08:42 02/04/21 08:42 02/04/21 08:42 02/04/21 08:42 Preop Diagnosis: upper gi symptoms Proposed Procedure: Operation Date: 02/04/21 09:15 Proposed Procedures p EGD 59740 D50.9(Not Applicable) - Klever Carmona MD Familial anesthetic complications: none Was Beta Jaz taken within 24 hours: N/A Was Clonidine taken within 24 hours: N/A Last intake: Intake Last Liquid Date 02/03/21 Last Liquid Time 21:00 Last Solid Date 02/03/21 Last Solid Time 21:00 Last Intake: 21:00 Social: Social History: Tobacco and No alcohol Packs per day: .3 Pack years: 44 Comment: was 2 pack a day Exam: Pre-Anes Outpt Exam: alert, oriented x 3, clear to auscultation bilaterally and regular rate & rhythm Airway: Submandibular: WNL Cervical ROM: WNL MP: 2 Pulmonary: Pulmonary: COPD, Cough, PARRA and SOB CV/HEM: CV/HEM: HTN : : None reported Hepatic: Hepatic: None reported GI: GI: None reported Metabolic: Metabolic: Hyperlipidemia and Morbid obesity Musc/skel: Musc/skel: Fibromyalgia and OA/DJD Neuropsych: Neuropsych: None reported Anesthetic Plan: ASA status: 3 Anesthesia: Anesthesia Evaluation and MAC Risk of > 500 ml blood loss (7ml/kg in children): No Meds/Allergies Current Medications: Current Medications Generic Name Dose Route Start Last Admin Trade Name Freq PRN Reason Stop Dose Admin Sodium Chloride 1,000 mls @ 30 ml s/hr 02/04/21 08:30 02/04/21 08:50 Sodium Chloride 0.9% IV 02/05/21 08:29 30 mls/hr .Q24H JOCY Administration PFSH Anesthesia PFSH: Medical History (Updated 01/30/21 @ 15:11 by Padmini Sosa MD) COPD (chronic obstructive pulmonary disease) Diverticulitis Hyperlipemia Hypertension Surgical History (Updated 01/30/21 @ 15:10 by Padmini Sosa MD) History of incisional hernia repair History of partial hysterectomy Hx of knee surgery Left knee meniscus tear repair S/P partial colectomy Status post colonoscopy (12/24/20) descending colon polyps Status post right knee replacement Family History Mother Hypertension Father Hypertension Social History Smoking and tobacco status: current every day smoker Alcohol intake: current History of recent travel: No Data Anesthesia Cardiac Studies: No Data to Display
[2021-02-04 09:38] VITALS: BP 107/65; PULSE 77; RESP 18; TEMP 36.9; O2SAT 93
[2021-02-04 09:47] VITALS: BP 110/68; PULSE 76; RESP 18; O2SAT 95
--- NOTE | 2021-02-04 21:22 | ANE.PACU2 ---
Inpatient post-anesthesia follow up: Airway intact: Yes Vital signs: Temperature 98.5 F Pulse Rate 76 Respiratory Rate 18 Blood Pressure 110/68 Pulse Oximetry 95 Oxygen Delivery Me thod Room Air Oxygen Flow Rate Fraction of Inspir ed Oxygen Hydration adequate: Yes Nausea and vomiting: No Pain level: 1 Mental status: Baseline
== END 2021-02-04 10:00 | disposition home or self-care (01) ==
PROVIDERS: PCP Nurse Practitioner Family; Visit Provider Surgery
PROC: 0DJ08ZZ Inspection of Upper Intestinal Tract, Via Natural or Artificial Opening Endoscopic (ICD-10-PCS; CPT 43235; principal; 2021-02-04 09:15)
DX: K59.00 Constipation, unspecified (principal); K43.2 Incisional hernia without obstruction or gangrene; D64.9 Anemia, unspecified; K20.90 Esophagitis, unspecified without bleeding; K29.70 Gastritis, unspecified, without bleeding; J44.9 Chronic obstructive pulmonary disease, unspecified; I10 Essential (primary) hypertension; E78.5 Hyperlipidemia, unspecified; E66.01 Morbid (severe) obesity due to excess calories; Z68.41 Body mass index [BMI] 40.0-44.9, adult; M79.7 Fibromyalgia; M19.90 Unspecified osteoarthritis, unspecified site
CPT/HCPCS: 43239; 88305; 96360; J2704; J7030

== ENCOUNTER 2021-02-12 10:46 | Outpatient (CLI) | payer OTHER, SELFPAY ==
[2021-02-12 11:55] LABS: Ferritin 246 ng/mL (15-150); Iron 50 ug/dL (37-145); Percent Saturation 15.3 % (20-50); Total Iron Binding Capacity 325 mcg/dl; Unsaturated Iron Binding 275 ug/dL (112-347)
== END 2021-02-12 10:47 | disposition home or self-care (01) ==
PROVIDERS: PCP Nurse Practitioner Family; Visit Provider Nurse Practitioner Family
DX: R53.83 Other fatigue (principal); D64.9 Anemia, unspecified
CPT/HCPCS: 82728; 83540; 83550

== ENCOUNTER → 2021-02-19 09:54 | Outpatient (BNVA) | payer OTHER, SELFPAY | PROVIDERS: PCP Nurse Practitioner Family; Visit Provider Urology | DX: R31.9 Hematuria, unspecified (principal); R31.29 Other microscopic hematuria; N39.41 Urge incontinence | CPT/HCPCS: 81003 ==

== ENCOUNTER → 2021-02-21 13:25 | Outpatient (BNVA) | payer OTHER, SELFPAY | PROVIDERS: PCP Nurse Practitioner Family; Visit Provider Nurse Practitioner Women's Health | DX: Z01.419 Encounter for gynecological examination (general) (routine) without abnormal findings (principal); Z12.39 Encounter for other screening for malignant neoplasm of breast; N39.41 Urge incontinence | CPT/HCPCS: 88175 ==

== ENCOUNTER 2021-03-04 12:18 | Outpatient (CLI) | payer OTHER, SELFPAY ==
[2021-03-06 09:22] LABS: Lyme AB Screen <0.90 index
[2021-03-07 17:36] LABS: E. Chaffeensis AB IGG <1:64; E. Chaffeensis AB IGM <1:20; RMSF IGG NOT DETECTED; RMSF IGM NOT DETECTED
== END 2021-03-04 12:19 | disposition home or self-care (01) ==
PROVIDERS: PCP Nurse Practitioner Family; Visit Provider Nurse Practitioner Family
DX: A93.8 Other specified arthropod-borne viral fevers (principal); R82.3 Hemoglobinuria
CPT/HCPCS: 83010; 86618; 86666; 86757

== ENCOUNTER → 2021-03-12 12:13 | Outpatient (BNVA) | payer OTHER, SELFPAY | PROVIDERS: PCP Nurse Practitioner Family; Visit Provider Nurse Practitioner Family | DX: Z01.812 Encounter for preprocedural laboratory examination (principal); Z20.822 Contact with and (suspected) exposure to COVID-19 | CPT/HCPCS: 87635 ==

== ENCOUNTER 2021-03-18 07:41 | Outpatient (CLI) | payer OTHER, SELFPAY ==
--- NOTE | 2021-03-18 11:01 | PFTS_ITS ---
Date of Study:03/18/21 Date of Dictation: 03/18/21 MECHANICS: Post bronchodilator Forced vital capacity (FVC) is normal. Post bronchodilator Forced expiratory volume in one second (FEV1) is moderately reduced 75%. FEV1/FVC is reduced. There is no significant response to bronchodilators. FLOW VOLUME LOOP: Sloping of expiratory limb suggestive of obstructive ventilatory defect. LUNG VOLUMES: Total lung capacity (TLC) is increased . Residual volume (RV) is severely increased 347%. DIFFUSING CAPACITY FOR CARBON MONOXIDE:mildly reduced 71% . INTERPRETATION: The pulmonary function tests are consistent with moderate obstructive lung disease and severe air trapping.Gas exchange (DLCO) is mildly reduced. Clinical Correlation recommended. [facility]
== END 2021-03-18 07:42 | disposition home or self-care (01) ==
LOC: RT 07:44
PROVIDERS: PCP Nurse Practitioner Family; Visit Provider Nurse Practitioner Family
DX: R53.83 Other fatigue (principal)
CPT/HCPCS: 94060; 94726; 94729; J7611

== ENCOUNTER 2021-03-31 06:50 | Outpatient (CLI) | payer OTHER, SELFPAY ==
--- NOTE | 2021-03-31 06:57 | USCV_ITS ---
Mery Anguiano Age: 60 Gender: F : 1960 Exam Date: 03/31/2021 07:37 Ordering Phys: Karen Davis NP Technologist: Jose R Orellana Exam Location: [facility] [place] Indication: FATIGUE BP: / HR: Rhythm: Sinus Technical Quality: Good MEASUREMENTS (Male / Female) Normal Values FINDINGS Left Ventricle Normal left ventricular cavity size. Normal left ventricular systolic function. No regional wall motion abnormalities. Left ventricular ejection fraction is estimated at 60 %. Grade I/IV diastolic dysfunction (abnormal relaxation filling pattern), normal to mildly elevated filling pressures. Right Ventricle The right ventricle is normal in size and function. Right Atrium The right atrium is normal in size. Left Atrium The left atrium is normal in size. Mitral Valve Moderately thickened mitral valve. Moderate mitral annular calcification. No mitral valve stenosis. No mitral valve regurgitation. Aortic Valve Structurally normal aortic valve without significant sclerosis or stenosis. There is no aortic regurgitation. Tricuspid Valve Structurally normal tricuspid valve without significant stenosis or regurgitation. Pulmonary artery systolic pressure is normal. Pulmonic Valve Structurally normal pulmonic valve without significant stenosis. There is no pulmonic regurgitation. Pericardium Normal pericardium without effusion. Aorta Normal ascending aorta dimension. CONCLUSIONS 1-Normal left ventricular cavity size. Normal left ventricular systolic function. No regional wall motion abnormalities. Left ventricular ejection fraction is estimated at 60 %. Grade I/IV diastolic dysfunction (abnormal relaxation filling pattern), normal to mildly elevated filling pressures. 2-There is no pericardial effusion. 3-No significant valve abnormalities. 4-There is no pericardial effusion. 5-There are no prior echocardiogram studies to compare. Joel Abraham MD (Electronically Signed) Final Date: 01 April 2021 22:24 S
== END 2021-03-31 06:51 | disposition home or self-care (01) ==
PROVIDERS: PCP Nurse Practitioner Family; Visit Provider Nurse Practitioner Family
DX: R53.83 Other fatigue (principal)
CPT/HCPCS: 93306

== ENCOUNTER 2021-04-21 16:53 | Emergency (ER) | payer OTHER, SELFPAY ==
[2021-04-21 17:19] VITALS: BP 108/64; PULSE 80; RESP 18; TEMP 37.3; O2SAT 94; BMI 34.7
--- NOTE | 2021-04-21 17:21 | ECG_ITS ---
[facility] Test Date: 2021-04-21 Pat Name: Mery Anguiano Department: Room: Gender: Female [employer] Fab[employer]ator: melina : 1960 Requested By: Radha Gillis Order Number: [id number] Gaurav MD: Nai Grubbs M.D. Measurements Intervals [place] Rate: 77 P: -22 UT: 153 QRS: 63 QRSD: 73 T: 43 QT: 376 QTc: 426 Interpretive Statements SINUS RHYTHM WITH SINUS ARRHYTHMIA LOW QRS VOLTAGE IN PRECORDIAL LEADS [QRS DEFLECTION < 1.0 mV IN CHEST LEADS] Compared to ECG 12/26/2016 08:42:57 Low QRS voltage now present Electronically Signed On 04-21-2021 19:46:36 CDT by Nai Grubbs M.D. [email or web address]
--- NOTE | 2021-04-21 17:21 | XRR_ITS ---
PROCEDURE INFORMATION: Exam: XR Chest Exam date and time: 04/21/2021 5:21 PM Age: 60 years old Clinical indication: Other: Dizzy/syncope TECHNIQUE: Imaging protocol: XR of the chest. Views: 1 view. Total images: 1 COMPARISON: CR XR knees AP WB w RT lmt ORTH 01/30/2021 11:35 AM FINDINGS: Lungs: No visible active interstitial or alveolar airspace disease. Pleural spaces: Unremarkable. No pleural effusion. No pneumothorax. Heart/Mediastinum: Cardiac structures and configuration with arteriosclerosis. Bones/joints: Unremarkable. Soft tissues: Heavy body habitus. XR/XR chest 1V portable [id number] IMPRESSION: Nonacute.
== END 2021-04-21 20:33 ==
PROVIDERS: Emergency Provider Family Medicine; PCP Nurse Practitioner Family
DX: R55 Syncope and collapse (principal); D50.9 Iron deficiency anemia, unspecified; Z53.21 Procedure and treatment not carried out due to patient leaving prior to being seen by health care provider
CPT/HCPCS: 71045; 93005

== ENCOUNTER 2021-04-23 13:12 | Outpatient (CLI) | payer OTHER, SELFPAY ==
[2021-04-23 14:20] LABS: Free T4 Free Thyroxine 1.27 ng/dL (0.82-1.77); Thyroid Stimulating Hormone 0.39 uIU/mL (0.27-4.20)
[2021-04-23 14:53] LABS: Iron 52 ug/dL (37-145)
[2021-04-24 14:58] LABS: Cyclic Citrullinated Peptide <16 UNITS
[2021-04-24 16:03] LABS: Anti-Nuclear Antibody Screen NEGATIVE (NEGATIVE)
[2021-04-30 16:33] LABS: Acetylcholine Recept Modulatin 12
== END 2021-04-23 13:13 | disposition home or self-care (01) ==
PROVIDERS: PCP Nurse Practitioner Family; Visit Provider Nurse Practitioner Family
DX: R53.1 Weakness (principal)
CPT/HCPCS: 36415; 83516; 83540; 84439; 84443; 86038; 86431

== ENCOUNTER → 2021-05-14 11:17 | Outpatient (BNVA) | payer OTHER, SELFPAY | PROVIDERS: PCP Nurse Practitioner Family; Visit Provider Nurse Practitioner Family | DX: Z20.822 Contact with and (suspected) exposure to COVID-19 (principal); J06.9 Acute upper respiratory infection, unspecified | CPT/HCPCS: 87635 ==

== ENCOUNTER 2021-05-19 13:50 | Emergency (ER) | payer SELFPAY ==
[2021-05-19 13:54] VITALS: BP 126/83; PULSE 85; RESP 13; TEMP 36.6; O2SAT 96; BMI 34.7
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
[2021-05-19 15:03] VITALS: BP 153/88; PULSE 68; RESP 16; TEMP 36.4; O2SAT 95
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
[2021-05-19 15:54] VITALS: BP 130/75; PULSE 68; RESP 16; TEMP 36.6; O2SAT 96
--- NOTE | 2021-05-19 15:56 | PC.NURSE ---
Patient is assisted on bedpan, 500ml urine output.
[2021-05-19 16:31] VITALS: BP 146/86; PULSE 68; RESP 16; TEMP 36.8; O2SAT 97
== END 2021-05-19 16:36 | disposition home or self-care (01) ==
PROVIDERS: Emergency Provider Emergency Medicine; PCP Nurse Practitioner Family
DX: S40.012A Contusion of left shoulder, initial encounter (principal); J44.9 Chronic obstructive pulmonary disease, unspecified; E78.5 Hyperlipidemia, unspecified; I10 Essential (primary) hypertension; V49.40XA Driver injured in collision with unspecified motor vehicles in traffic accident, initial encounter
CPT/HCPCS: 70450; 71045; 72050; 72125; 73000; 99283

== ENCOUNTER → 2021-07-03 11:57 | Outpatient (BNVA) | payer OTHER, SELFPAY | PROVIDERS: PCP Nurse Practitioner Family; Visit Provider Surgery | DX: K43.2 Incisional hernia without obstruction or gangrene (principal); Z20.822 Contact with and (suspected) exposure to COVID-19 | CPT/HCPCS: 87635 ==

== ENCOUNTER 2021-07-09 11:21 | Observation (INO) | payer OTHER, SELFPAY ==
[2021-07-08 13:55] VITALS: BMI 34.7
[2021-07-09] VITALS (21 sets, daily range): BP systolic 119–161; BP diastolic 72–91; PULSE 73–108; RESP 16–23; TEMP 36.6–37.2; O2SAT 79–99
--- NOTE | 2021-07-09 08:27 | P.HP_ITS ---
Same Day Surgery H&P Indication for Procedure/HPI DATE OF PROCEDURE: July 09, 2021 CHIEF COMPLAINT/INDICATIONFOR SURGICAL PROCEDURE: incisional hernia repair PREOP DIAGNOSIS: Incisional hernia PLANNED PROCEDRUE: Operation Date: 07/09/21 09:20 Proposed Procedures p Incisional Hernia Repair w/ Mesh with component separation [id number] K43.2(Not Applicable) - Klever Carmona MD Medications/Allergies* Home Medications Medication Instructions Recorded Confirmed Type amlodipine 10 mg tablet 10 mg PO DAILY 01/20/20 07/09/21 History fluticasone 100 mcg-salmeterol 50 1 inh INHALATION BID 01/20/20 07/09/21 History mcg/dose blistr powdr for inhalation hydrochlorothiazide 25 mg tablet 25 mg PO DAILY 01/20/20 07/09/21 History lisinopril 10 mg tablet 20 mg PO DAILY 01/20/20 07/09/21 History albuterol sulfate 1 puff INHALATION QID 07/03/20 07/09/21 History tiotropium bromide 18 mcg capsule 1 cap INHALATION DAILY 10/31/20 07/09/21 History with inhalation device atorvastatin 10 mg tablet 10 mg PO DAILY 12/06/20 07/09/21 History ferrous sulfate 325 mg (65 mg 325 mg PO DAILY 12/06/20 07/09/21 History iron) tablet gabapentin 100 mg capsule 100 mg PO BID 12/06/20 07/09/21 History coenzyme Q10 [Co Q-10] 50 mg PO DAILY 02/04/21 07/09/21 History escitalopram oxalate 10 mg PO DAILY 05/19/21 07/09/21 History Allergies/Adverse Reactions Allergy/AdvReac Type Severity Reaction Status Date / Time clavulanic acid Allergy RASH Verified 07/09/21 08:09 [From Augmentin] Pertinent History/Comorbid Conditions* Medical History (Updated 05/27/21 @ 00:01 by ) COPD (chronic obstructive pulmonary disease) Diverticulitis Helicobacter pylori gastritis Hyperlipemia Hypertension Urgency incontinence Surgical History (Updated 02/21/21 @ 13:52 by Emilie Boyer APN, WHNP) H/O esophagogastroduodenoscopy (02/04/21) Gastritis H/O laparoscopy (~1999) removal of the right fallopian tube and ovary due to a cyst; possible abscess. Performed in [place] History of incisional hernia repair Hx of knee surgery Left knee meniscus tear repair S/P partial colectomy Status post colonoscopy (12/24/20) descending colon polyps Status post right knee replacement (~06/2020) Family History (Updated 02/21/21 @ 13:16 by Rosy Pimentel) Diabetes Sister Hypertension Mother Father Denies family history of Colon cancer Ovarian cancer Heart disease Hypercholesteremia Breast cancer Uterine cancer Thyroid disease Stroke Social History Smoking and tobacco status: current every day smoker Pertinent Exam Findings alert, oriented x 3 and regular rate & rhythm Recommendations Surgery/Procedure today Coding Level of Care Code Acute Child Health Associate for Rosemary Valencia
[2021-07-09] MEDS: sodium chloride 0.9% 1,000 ML 30 ML IV (08:37)
[2021-07-09 08:47] LABS: Basophils # 0.1 10^3/uL (0.0-0.1); Basophils % 0.7 %; Eosinophils # 0.1 10^3/uL (0.0-0.8); Eosinophils % 1.2 %; Hematocrit 45.2 % (37.0-47.0); Hemoglobin 15.4 g/dL (11.5-15.3); Lymphocytes # 1.9 10^3/uL (0.8-4.8); Lymphocytes % 16.9 %; Mean Corpuscular HGB Conc 34.1 g/dL (30.0-36.0); Mean Corpuscular Hemoglobin 31.1 pg (28.0-34.0); Mean Corpuscular Volume 91.3 fl (81-99); Mean Platelet Volume 8.5 fL (7.4-10.4); Monocytes # 0.9 10^3/uL (0.2-0.9); Monocytes % 7.7 %; Neutrophils # 8.24 10^3/uL (1.8-7.7); Neutrophils % 73.1 %; Nucleated Red Blood Cells % 0 %; Platelet Count 287 10^3/cmm (130-400); Red Blood Count 4.95 10^6/uL (4.1-5.3); Red Cell Distribution Width 12.6 % (12.1-15.1); White Blood Count 11.3 10^3/uL (4.0-10.0)
--- NOTE | 2021-07-09 08:51 | ANES.PREANE2 ---
Pre-Anesthetic Assessment Pre-Anesthetic Assessment: Height/Weight: Height 1.68 m Weight 97.522 kg Temp Pulse Resp BP Pulse Ox 97.9 F 73 18 131/86 97 07/09/21 08:14 07/09/21 08:14 07/09/21 08:14 07/09/21 08:14 07/09/21 08:14 Preop Diagnosis: Incisional hernia Proposed Procedure: Operation Date: 07/09/21 09:20 Proposed Procedures p Incisional Hernia Repair w/ Mesh with component separation [id number] K43.2(Not Applicable) - Klever Carmona MD Familial anesthetic complications: none Was Beta Jaz taken within 24 hours: N/A Was Clonidine taken within 24 hours: N/A Last intake: Intake Last Liquid Date 07/08/21 Last Liquid Time 22:00 Last Solid Date 07/08/21 Last Solid Time 20:00 Social: Social History: Tobacco and No alcohol Exam: Pre-Anes Outpt Exam: alert, oriented x 3, clear to auscultation bilaterally and regular rate & rhythm Airway: Cervical ROM: WNL MP: 2 Dentition: Full Pulmonary: Pulmonary: COPD CV/HEM: CV/HEM: HTN Comments: echo for fatigue 04/19 --> EF 60%, grade I diastolic dsyfunction. Told fatigue is due to snf covid effects Metabolic: Metabolic: Hyperlipidemia Musc/skel: Musc/skel: Fibromyalgia Anesthetic Plan: ASA status: 3 Anesthesia: General Risk of > 500 ml blood loss (7ml/kg in children): No Meds/Allergies Current Medications: Current Medications Generic Name Dose Route Start Last Admin Trade Name Freq PRN Reason Stop Dose Admin Sodium Chloride 1,000 mls @ 30 ml s/hr 07/09/21 08:15 07/09/21 08:37 Sodium Chloride 0.9% IV 07/10/21 08:14 30 mls/hr .Q24H JOCY Administration PFSH Anesthesia PFSH: Medical History COPD (chronic obstructive pulmonary disease) Diverticulitis Helicobacter pylori gastritis Hyperlipemia Hypertension Urgency incontinence Surgical History H/O esophagogastroduodenoscopy (02/04/21) Gastritis H/O laparoscopy (~1999) removal of the right fallopian tube and ovary due to a cyst; possible abscess. Performed in [place] History of incisional hernia repair Hx of knee surgery Left knee meniscus tear repair S/P partial colectomy Status post colonoscopy (12/24/20) descending colon polyps Status post right knee replacement (~06/2020) Family History Mother Hypertension Father Hypertension Sister Diabetes Denies family history of Colon cancer Ovarian cancer Heart disease Hypercholesteremia Breast cancer Uterine cancer Thyroid disease Stroke Social History Smoking and tobacco status: current every day smoker Data Anesthesia CBC & Chem 7: 07/09/21 08:36 07/09/21 08:36 Other Labs: Laboratory Results - last 48 hr 07/09/21 08:36 WBC 11.3 H RBC 4.95 Hgb 15.4 H Hct 45.2 MCV 91.3 MCH 31.1 MCHC 34.1 RDW 12.6 Plt Count 287 MPV 8.5 Neut % (Auto) 73.1 Lymph % (Auto) 16.9 Ritchie % (Auto) 7.7 Eos % (Auto) 1.2 Baso % (Auto) 0.7 Neut # (Auto) 8.24 H Lymph # (Auto) 1.9 Ritchie # (Auto) 0.9 Eos # (Auto) 0.1 Baso # (Auto) 0.1 Nucleated RBC % (auto) 0 Nucleated RBCs # 0.0 Cardiac Studies: Echocardiogram 03/31/21
[2021-07-09 09:22] LABS: Blood Urea Nitrogen 11 mg/dL (8-23); Calcium 9.6 mg/dL (8.5-10.5); Carbon Dioxide 26 mmol/L (22-29); Chloride 100 mmol/L (98-107); Glomerular Filtration Rate 84.8 mL/min (90-130); Glucose 86 mg/dL (65-115); Osmolality Calculated 283 mOsm/kg (285-295); Sodium 137 mmol/L (136-145)
[2021-07-09 09:24] LABS: Anion Gap 14.9 (5-19); Potassium 3.9 mmol/L (3.5-5.1)
--- NOTE | 2021-07-09 13:40 | P.OP_ITS ---
Operative Report Date of procedure: July 09, 2021 Pre-op Diagnosis: Symptomatic recurrent incarcerated incisional hernia Post-op Diagnosis: Recurrent incarcerated incisional hernia containing small bowel and sigmoid colon Extensive adhesions from prior hernia repair and mesh placement requiring lysis of adhesions for 90 minutes Retracted mesh Procedure Done: 1. Open Dedra Stoppa repair of incarcerated recurrent incisional hernia 2. Implantation of 25 x 20cm Ventralight mesh as well a 15 x 10cm Ultrapro mesh 3. Partial explantation of retracted mesh 4. Extensive lysis of adhesions for 90 minutes Specimens removed/disposition: Abdominal wall mass Surgeon: Klever Carmona Anesthesia: General Condition: stable Disposition: PACU Procedure: The patient was taken to the operating room and intubated under general anesthesia after IV antibiotics had been administered. A Moyer catheter was placed and the abdomen was prepped and draped in a sterile manner. Using a 15 blade a midline laparotomy incision was made superior to the umbilicus as well as existing laparotomy scar and incision was extended up to the pubic symphysis. The subcutaneous tissue, linea alba was divided using electrocautery to enter the peritoneal cavity. There was small bowel loops and omentum adherent to the existing mesh at the site of the laparotomy. Using combination of electrocautery Metzenbaum scissors and LigaSure, the omentum and the colon was taken down from the abdominal wall and the linea alba was divided until the division was taken down up to the pubic symphysis. At this point lysis of adhesions was performed bilaterally to take down the sigmoid colon within the hernia sac as well as the small bowel loops adherent to the abdominal wall and lysis of adhesions was performed for a total of 90 minutes until the abdominal wall was completely freed. About 1 cm from the medial edge of the rectus abdominis muscle the posterior rectus sheath was opened using electrocautery and dissected superiorly about 3 cm about the existing incision and inferiorly up to the arcuate line. The transversalis fascia could not be appreciated inferior to the arcuate line bilaterally due to the existing hernia as well as prior malika geries and the hernia sac was freed from the adjacent subcutaneous tissue for planned coverage of the bowel on the inferior aspect of the incision. The retrorectus space was mobilized bilaterally using a combination of electrocautery and blunt dissection up to the linea semilunaris. At this point the defect was measured and a decision was made to place a 30 x 20 cm mesh but unfortunately the largest mesh that we had was a 25 x 20 cm mesh and therefore another Ultrapro mesh measuring 15 x 10 cm was selected in order to obtain coverage superiorly. The posterior rectus sheath was approximated using running 0 Vicryl sutures. The 2 meshes were sutured using 0 Vicryl sutures. Interrupted 2-0 [place] sutures were placed along the edge of the Ventralight and Ultrapro mesh. The mesh was introduced into the retrorectus space and inferior edge of the mesh was advanced into the space of Retzius which had been previously opened thus ensuring that there was mesh overlap inferiorly. The mesh was sutured to the rectus fascia over the pubic symphysis using 2-0 [place] suture. Using GraNee needle [place] sutures were pulled laterally as well as superiorly for placement of transfascial sutures. 20 cc of saline mixed with 20cc of Exparel mixed with 20cc of 0.5% Marcaine was infiltrated bilaterally around the incisions. At this point the medial edge of the rectus muscle could be approximated to the midline without significant tension. The rectus muscles were approximated in the midline using running #1 looped PDS. The subcutaneous tissues were approximated using running 3-0 Vicryl suture and skin was closed with running subcuticular 4-0 Monocryl suture and Dermabond. The patient was extubated and transferred to recovery room with a Moyer catheter and abdominal binder in place.
[2021-07-09] MEDS: fentaNYL 50 mcg/mL INJ 2mL IVP ×2 (14:48→14:53)
[2021-07-09] MEDS: HYDROmorphone 1 mg/mL INJ 1 mL 0.5 MG IVP ×2 (15:00→15:10)
[2021-07-09] MEDS: ondansetron 2 mg/ML SDV 2 mL 4 MG IVP (15:33)
--- NOTE | 2021-07-09 15:43 | ANE.PACU2 ---
Inpatient post-anesthesia follow up: Airway intact: Yes Vital signs: Temperature 98.4 F Pulse Rate 81 Respiratory Rate 17 Blood Pressure 128/78 Pulse Oximetry 91 Oxygen Delivery Me thod Nasal Cannula Oxygen Flow Rate 2 Fraction of Inspir ed Oxygen Hydration adequate: Yes Nausea and vomiting: No Pain level: 1 Mental status: Baseline
[2021-07-09] MEDS: albuterol 8 gm MDI 1 PUFF INHALATION ×2 (18:07→20:39)
[2021-07-09] MEDS: famotidine 20 mg/2 mL INJ IVP (18:15)
[2021-07-09] MEDS: D5-NS 0.45% + KCL 20 mEq 20 MEQ/1,000 ML BAG 100 MEQ IV (18:15)
[2021-07-09] MEDS: lactulose oral liq 20 gm/30 mL UDC 10 GM PO (18:39)
[2021-07-09] MEDS: morphine 4 mg/mL SDV 1 mL 3 MG IVP (18:40)
[2021-07-09] MEDS: gabapentin 100 mg Capsule PO (18:41)
[2021-07-09] MEDS: oxyCODONE-APAP 5-325 mg Tablet 1 TAB PO (21:06)
[2021-07-09] MEDS: sennosides 8.6 mg Tablet 17.2 MG PO (21:06)
[2021-07-10] VITALS (14 sets, daily range): BP systolic 121–143; BP diastolic 73–82; PULSE 69–100; RESP 12–20; TEMP 36.6–37.2; O2SAT 90–914
[2021-07-10] MEDS: morphine 4 mg/mL SDV 1 mL 3 MG IVP ×3 (01:48→13:34)
[2021-07-10 02:46] LABS: Basophils % 0.1 %; Hematocrit 42.4 % (37.0-47.0); Hemoglobin 14.1 g/dL (11.5-15.3); Lymphocytes # 0.8 10^3/uL (0.8-4.8); Lymphocytes % 5.1 %; Mean Corpuscular HGB Conc 33.3 g/dL (30.0-36.0); Mean Corpuscular Hemoglobin 31.4 pg (28.0-34.0); Mean Corpuscular Volume 94.4 fl (81-99); Mean Platelet Volume 8.7 fL (7.4-10.4); Monocytes # 1.8 10^3/uL (0.2-0.9); Monocytes % 11.7 %; Neutrophils # 12.42 10^3/uL (1.8-7.7); Neutrophils % 82.7 %; Nucleated Red Blood Cells % 0 %; Platelet Count 257 10^3/cmm (130-400); Red Blood Count 4.49 10^6/uL (4.1-5.3); Red Cell Distribution Width 12.7 % (12.1-15.1)
[2021-07-10 03:11] LABS: Blood Urea Nitrogen 9 mg/dL (8-23); Calcium 8.7 mg/dL (8.5-10.5); Carbon Dioxide 24 mmol/L (22-29); Chloride 103 mmol/L (98-107); Glucose 108 mg/dL (65-115); Osmolality Calculated 281 mOsm/kg (285-295); Sodium 136 mmol/L (136-145)
[2021-07-10] MEDS: famotidine 20 mg/2 mL INJ IVP ×2 (04:59→15:30)
[2021-07-10] MEDS: lactulose oral liq 20 gm/30 mL UDC 10 GM PO ×2 (04:59→15:29)
[2021-07-10] MEDS: D5-NS 0.45% + KCL 20 mEq 20 MEQ/1,000 ML BAG 100 MEQ IV (05:00)
[2021-07-10] MEDS: albuterol 8 gm MDI 1 PUFF INHALATION ×3 (08:05→20:46)
[2021-07-10] MEDS: escitalopram 10 mg Tablet PO (09:27)
[2021-07-10] MEDS: lisinopril 10 mg Tablet 20 MG PO (09:27)
[2021-07-10] MEDS: gabapentin 100 mg Capsule PO ×2 (09:27→17:04)
[2021-07-10] MEDS: ferrous sulfate EC 325 mg Tablet PO (09:27)
[2021-07-10] MEDS: amlodipine 10 mg Tablet PO (09:27)
[2021-07-10] MEDS: hydroCHLOROthiazide 25 mg Tablet PO (09:28)
[2021-07-10] MEDS: oxyCODONE-APAP 5-325 mg Tablet 1 TAB PO ×2 (10:35→17:04)
[2021-07-10] MEDS: ondansetron 2 mg/ML SDV 2 mL 4 MG IVP (10:49)
[2021-07-10] MEDS: enoxaparin 40 mg/0.4 mL Syringe SUBCUT (13:36)
--- NOTE | 2021-07-10 13:58 | PM.PN ---
Subjective Subjective: Interval history: Patient has been complaining of abdominal pain and nausea, ambulated once today, no flatus or BM Vitals/I&O/Wt Last Vital Signs Temp 98.2 F 07/10/21 11:34 Pulse 78 07/10/21 11:34 Resp 16 07/10/21 13:34 BP 143/82 07/10/21 11:34 Pulse Ox 91 07/10/21 13:34 07/09/21 07/10/21 07/10/21 22:59 06:59 14:59 Intake Total 60 / 2760 1540 / 2760 971.667 / 971.667 Balance 60 / 2460 1540 / 2460 971.667 / 971.667 Physical Exam Narrative: EXAM NARRATIVE: Abdomen: Soft, tender, nondistended, incision clean dry and intact Urinary Catheter Management^: Moyer: Cath Placed During This Visit: yes Urinary Catheter Date of Insertion: 07/09/21 Urinary Catheter Time of Insertion: 10:00 Data : 07/10/21 02:00 07/10/21 02:00 A&P Assessment and plan (1) History of incisional hernia repair: 61-year-old female status post incisional hernia repair with mesh, today complaining of abdominal pain and nausea DC IV fluids DC antibiotics after 2 doses postop Clear liquid diet DC Moyer Ambulate with physical therapy Incentive spirometry, wean O2 to room air Pepcid for GI prophylaxis Lovenox for DVT prophylaxis Patient will need 1 more night of hospital stay to ensure resolution of ileus and for postop pain control Status: Acute Attestations Medical Necessity Statement*: Post incisional hernia requiring 1 more night of hospital stay to rule out complications Coding Level of Care Code Acute Medical Record Coder for Rosemary Fwanju Diagnoses History of incisional hernia repair Z98.890; Z87.19
[2021-07-10] MEDS: promethazine 25 mg Tablet 12.5 MG PO (17:05)
[2021-07-10] MEDS: sennosides 8.6 mg Tablet 17.2 MG PO (21:58)
[2021-07-11] VITALS (9 sets, daily range): BP systolic 113–119; BP diastolic 64–76; PULSE 79–92; RESP 16–20; TEMP 36.7–37; O2SAT 86–93
[2021-07-11 02:59] LABS: Basophils % 0.2 %; Eosinophils % 0.1 %; Hematocrit 40.1 % (37.0-47.0); Hemoglobin 13.4 g/dL (11.5-15.3); Lymphocytes # 1.3 10^3/uL (0.8-4.8); Lymphocytes % 7.3 %; Mean Corpuscular HGB Conc 33.4 g/dL (30.0-36.0); Mean Corpuscular Hemoglobin 31.2 pg (28.0-34.0); Mean Corpuscular Volume 93.5 fl (81-99); Mean Platelet Volume 8.7 fL (7.4-10.4); Monocytes # 1.9 10^3/uL (0.2-0.9); Monocytes % 10.5 %; Neutrophils # 14.59 10^3/uL (1.8-7.7); Neutrophils % 81.3 %; Nucleated Red Blood Cells % 0 %; Platelet Count 229 10^3/cmm (130-400); Red Blood Count 4.29 10^6/uL (4.1-5.3); Red Cell Distribution Width 12.6 % (12.1-15.1); White Blood Count 17.9 10^3/uL (4.0-10.0)
[2021-07-11 03:24] LABS: Anion Gap 12.4 (5-19); Blood Urea Nitrogen 7 mg/dL (8-23); Calcium 8.8 mg/dL (8.5-10.5); Carbon Dioxide 27 mmol/L (22-29); Chloride 96 mmol/L (98-107); Glucose 111 mg/dL (65-115); Osmolality Calculated 273 mOsm/kg (285-295); Potassium 3.4 mmol/L (3.5-5.1); Sodium 132 mmol/L (136-145)
[2021-07-11] MEDS: morphine 4 mg/mL SDV 1 mL 3 MG IVP (03:25)
[2021-07-11] MEDS: famotidine 20 mg/2 mL INJ IVP (05:09)
[2021-07-11] MEDS: lactulose oral liq 20 gm/30 mL UDC 10 GM PO (05:09)
[2021-07-11] MEDS: albuterol 8 gm MDI 1 PUFF INHALATION ×2 (08:00→13:04)
[2021-07-11] MEDS: ferrous sulfate EC 325 mg Tablet PO (10:08)
[2021-07-11] MEDS: escitalopram 10 mg Tablet PO (10:08)
[2021-07-11] MEDS: gabapentin 100 mg Capsule PO (10:09)
[2021-07-11] MEDS: amlodipine 10 mg Tablet PO (10:09)
[2021-07-11] MEDS: lisinopril 10 mg Tablet 20 MG PO (10:09)
[2021-07-11] MEDS: oxyCODONE-APAP 5-325 mg Tablet 1 TAB PO (10:09)
[2021-07-11] MEDS: hydroCHLOROthiazide 25 mg Tablet PO (10:09)
--- NOTE | 2021-07-11 13:33 | P.DS_ITS ---
Discharge Providers Date of Admission: 07/09/21 11:21 Date of Discharge: July 11, 2021 Attending Provider at Admission: Klever Carmona MD Attending Provider at Discharge: Klever Carmona MD Primary Care Provider: Karen Davis NP Diagnoses at Discharge Discharge Diagnosis (1) History of incisional hernia repair: Status: Acute Permanent problem details: Recurrent incisional hernia repair - Dedra Stopwillie Reason for Visit Reason for Visit: incisional hernia Hospital Course Hospital Course This is a 61-year-old female who had previously undergone colon resection, subsequently developed incisional hernia requiring incisional hernia repair with mesh. Patient had developed symptomatic recurrent incisional hernia and underwent elective repair on 07/09/2021. By postop day 2 patient was passing flatus and tolerating a full liquid diet and pain is well controlled. Unfortunately she continued to have low O2 sats on home O2 eval by respiratory therapy and therefore she was discharged home on home oxygen. At time of discharge her vital signs are stable her incisions were clean dry and intact. Physical Exam Urinary Catheter Management^: Moyer: Cath Placed During This Visit: yes Urinary Catheter Date of Insertion: 07/09/21 Urinary Catheter Time of Insertion: 10:00 Discharge Data Data Completed and Pending: Pending at discharge Category Date Time Status Basic Metabolic P jenaro AM LABS Lab 07/12/21 04:00 Ordered Complete Blood Co unt w/Auto AM LABS Lab 07/12/21 04:00 Ordered Pathology: Surgic al [PTH] Routine Pth 07/09/21 14:32 Received Labs from last 24 hours 07/11/21 07/11/21 02:23 02:23 WBC 17.9 H RBC 4.29 Hgb 13.4 Hct 40.1 MCV 93.5 MCH 31.2 MCHC 33.4 RDW 12.6 Plt Count 229 MPV 8.7 Neut % (Auto) 81.3 Lymph % (Auto) 7.3 Mcmullen % (Auto) 10.5 Eos % (Auto) 0.1 Baso % (Auto) 0.2 Neut # (Auto) 14.59 H Lymph # (Auto) 1.3 Mcmullen # (Auto) 1.9 H Eos # (Auto) 0.0 Baso # (Auto) 0.0 Nucleated RBC % (a uto) 0 Nucleated RBCs # 0.0 Sodium 132 L Potassium 3.4 L Chloride 96 L Carbon Dioxide 27 Anion Gap 12.4 BUN 7 L Creatinine 0.5 GFR Calculation 125.0 Glucose 111 Calculated Osmolal ity 273 L Calcium 8.8 Vitals: Last Vital Signs Temp 98.6 F 07/11/21 11:27 Pulse 92 07/11/21 11:27 Resp 16 07/11/21 11:27 BP 116/68 07/11/21 11:27 Pulse Ox 90 07/11/21 11:27 Discharge Plan Discharge Patient Disposition: Home Condition: Stable Prescriptions: New Percocet 5-325 mg tablet 1 tab PO Q6H PRN (Reason: pain) Qty: 20 RF: 0 lactulose 10 gram/15 mL solution 15 ml PO BID Qty: 237 RF: 2 levofloxacin 750 mg tablet 750 mg PO DAILY 7 Days RF: 0 ondansetron HCl [Zofran] 4 mg tablet 4 mg PO Q6H PRN (Reason: nausea and vomiting) Qty: 20 RF: 0 Continued hydrochlorothiazide 25 mg tablet 25 mg PO DAILY RF: 0 amlodipine 10 mg tablet 10 mg PO DAILY RF: 0 lisinopril 10 mg tablet 20 mg PO DAILY RF: 0 fluticasone propion-salmeterol [Advair Diskus] 100-50 mcg/dose blister with device 1 inh INHALATION BID RF: 0 Spiriva with HandiHaler 18 mcg capsule, w/inhalation device 1 cap inhalation DAILY RF: 0 atorvastatin 10 mg tablet 10 mg PO DAILY RF: 0 gabapentin 100 mg capsule 100 mg PO BID RF: 0 ferrous sulfate [FeroSul] 325 mg (65 mg iron) tablet 325 mg PO DAILY RF: 0 albuterol sulfate 90 mcg/actuation HFA aerosol inhaler 1 puff INHALATION QID RF: 0 coenzyme Q10 [Co Q-10] 50 mg Capsule 50 mg PO DAILY RF: 0 escitalopram oxalate 10 mg tablet 10 mg PO DAILY RF: 0 Discharge Orders: Discharge Order (Routine); Ordered 07/11/21 Ordered By: Klever Carmona Other Ambulatory Orders: DME: Oxygen (Order) Location: None Selected Ordered By: Klever Carmona Referrals: Klever Carmona MD [Physician] - 07/28/21 8:30 am Karen Davis NP [Primary Care Provider] - 07/17/21 10:20 am Patient Instructions: Opioid Safety Activity Restrictions/Additional Instructions: Diet Advance to normal diet as tolerated, increase fluid intake as much as possible. Activity Avoid strenuous activity for 2 weeks but continue with daily activities including walking as tolerated. Do not lift more than 10 pounds for 2 weeks Return to work/school You can return to work/ school whenever you feel ready as long as you don?t have to lift more than 10 pounds at work. If you have paperwork that needs to be completed for time off from work, please contact my office Driving You can resume driving once you stop using narcotic pain medications, and transition to non-opioid pain medications like Tylenol, Motrin, Aleve, etc. Medications Pain Take opioid pain medications as prescribed and transition to non-opioid pain medications like Tylenol, Motrin, Aleve etc. over the next few days. The goal of the pain medications is to make the pain bearable and not to be pain free since you recently had surgery. Resume all home medications after surgery as per the medication reconciliation list Nausea Nausea is common after surgery, take nausea medications as needed and stay on a liquid bland diet until nausea resolves. Constipation The combination of surgery, anesthesia and pain medications can result in constipation. Take stool softeners as prescribed. If you do not have a bowel movement in 3 days, please take an [id number] laxative like MiraLAX to address the constipation. Shower It is ok to shower but avoid getting the wound wet for 48 hours after surgery. Do not soak in bathtub, swimming pool or hot tub for 2 weeks. Wound care If glue has been used on your incisions after surgery, the glue on the incision will peel slowly over the next two weeks. The stitches used are dissolvable and will not need to be removed. Do not apply antibiotics or other medications on the incision Problems with the wound: you can develop some redness around the incision from b ruising after surgery. If there is increasing pain, redness, tenderness around the incision with or without drainage, please contact my office to rule out an infection. Sometimes the skin at the incisions can separate, resulting in reopening of the wound. Cover the wound with antibiotic cream and sterile dressings and contact my office. Contact physician Call the office at [phone] during office hours or go the Emergency Room ?Fever to 100.4 or greater ?Shaking chills ?Pain that increases over time ?Redness, warmth, or pus draining from incision sites ?Persistent nausea or inability to take in liquids Discharge Attestations Time Spent in Discharge Care*: less than 30 min Quality Metrics Clinical Quality Measures During this hospital stay, did patient experience: None Coding Level of Care Code Acute [facility] note Diagnoses History of incisional hernia repair Z98.890; Z87.19
--- NOTE | 2021-07-11 14:12 | PC.CHAP ---
Pastoral Care Encounter/Spiritual Assessment Type of Contact [] Declined assessment analyst visit [] Patient/Family/Request visit [] Outpatient visit [] Follow-up visit [] Physician referral [] Code/Alert [xx] Routine visit [] Staff referral [] Actively dying [] Patient sleeping [] Family support [] [] Out of room [] Palliative care [] [] Receiving care in room [] Pre-surgical visit [] Trauma [] Long length of stay [] ICU visit [] Other: Relational/Emotional Strength [xx] Patient feels connected with others/family/visitors/staff [] Distress [] Loneliness/isolation [] Abandonment Spirituality of Patient [xx] Person of Deepa [] Attends Episcopal of their Deepa [xx] Believes in Prayer [xx] Reads Bible or Christian materials [] There are Spiritual issues to be addressed Quality Assurance Monitor Final Interventions [xx] Prayer [xx] Active listening [xx] Non-anxious presence [] Spiritual/emotional support [] Crisis/trauma care [] Spiritual counseling [] Bereavement support [] Provided bereavement packet [xx] Provided Bible/devotional materials [] Provided toy/stuffed animal, coloring book to patient or family member [] Provided Communion [] Anointing/Hooper [] Salvation [xx] Completed spiritual assessment [] Other: Impact on Illness or Injury [] Angry [] Fearful [] Anxious [] Often cries [] Exhaustion [] Unable to work [] Unable to attend evangelical [] Unable to walk/stand [] Unable to read [] Unable to drive [] Unable to eat/drink [] Unable to sleep [] Unable to be with family [] Patient intubated [] Other: Summary Patient stated she is feeling somewhat better. Her nausea has reduced and hernia surgery is not as painful as it was earlier. She thinks she will be discharged this evening. She has family coming in early for Thanksgiving. They will be doing the cooking and preparations and she won't have to herself. This is a relief and a blessing to her at this time. Time spent with patient 7 minutes
== END 2021-07-11 15:31 | disposition home or self-care (01) ==
LOC: MEDSURG 11:21
PROVIDERS: Admitting Provider Surgery; PCP Nurse Practitioner Family; Visit Provider Surgery
PROC: (CPT 49566; principal; 2021-07-09 09:10)
DX: K43.2 Incisional hernia without obstruction or gangrene (principal); J44.9 Chronic obstructive pulmonary disease, unspecified; I10 Essential (primary) hypertension; E78.5 Hyperlipidemia, unspecified; F17.200 Nicotine dependence, unspecified, uncomplicated; Z87.19 Personal history of other diseases of the digestive system
CPT/HCPCS: 49566; 49568; 36415; 36592; 80048; 85025; 86850; 86900; 88307; 94640; 96372; 97116; 97161; C9290; G0378; J0690; J1100; J1170; J1650; J2250; J2270; J2405; J2704; J2710; J3010; J3490; J3535; J7030; Q0169

== ENCOUNTER 2021-07-31 14:21 | Outpatient (CLI) | payer OTHER, SELFPAY ==
[2021-07-31 14:38] LABS: Basophils # 0.1 10^3/uL (0.0-0.1); Basophils % 0.8 %; Eosinophils # 0.5 10^3/uL (0.0-0.8); Eosinophils % 4.7 %; Hematocrit 40.4 % (37.0-47.0); Hemoglobin 13.6 g/dL (11.5-15.3); Lymphocytes # 2.9 10^3/uL (0.8-4.8); Lymphocytes % 25.5 %; Mean Corpuscular HGB Conc 33.7 g/dL (30.0-36.0); Mean Corpuscular Hemoglobin 30.6 pg (28.0-34.0); Mean Platelet Volume 8.5 fL (7.4-10.4); Monocytes % 8.6 %; Nucleated Red Blood Cells % 0 %; Platelet Count 379 10^3/cmm (130-400); Red Blood Count 4.44 10^6/uL (4.1-5.3); Red Cell Distribution Width 12.2 % (12.1-15.1); White Blood Count 11.2 10^3/uL (4.0-10.0)
[2021-07-31 14:57] LABS: Iron 47 ug/dL (37-145); Percent Saturation 15.3 % (20-50); Total Iron Binding Capacity 307 mcg/dl; Unsaturated Iron Binding 260 ug/dL (112-347)
== END 2021-07-31 14:22 | disposition home or self-care (01) ==
PROVIDERS: PCP Nurse Practitioner Family; Visit Provider Nurse Practitioner Family
DX: D50.9 Iron deficiency anemia, unspecified (principal)
CPT/HCPCS: 36415; 83540; 83550; 85025

== ENCOUNTER → 2022-01-29 11:42 | Outpatient (BNVA) | payer OTHER, SELFPAY | PROVIDERS: PCP Nurse Practitioner Family; Visit Provider Specialist | DX: Z47.1 Aftercare following joint replacement surgery (principal); Z96.651 Presence of right artificial knee joint; M17.12 Unilateral primary osteoarthritis, left knee | CPT/HCPCS: 73560; 73565 ==

== ENCOUNTER → 2022-11-25 10:23 | Outpatient (BNVA) | payer MEDICARE, SELFPAY | PROVIDERS: PCP Family Medicine; Visit Provider Family Medicine | DX: R53.81 Other malaise (principal); R53.83 Other fatigue; Z51.81 Encounter for therapeutic drug level monitoring; E78.5 Hyperlipidemia, unspecified; Z13.220 Encounter for screening for lipoid disorders; R73.09 Other abnormal glucose | CPT/HCPCS: 80053; 80061; 83036; 83550; 83735; 84443; 85025 ==

== ENCOUNTER 2023-07-14 08:44 | Outpatient (CLI) | payer MEDICARE, SELFPAY ==
[2023-07-14 09:11] VITALS: BMI 30.9
--- NOTE | 2023-07-14 09:11 | ECG_ITS ---
[facility] Test Date: 2023-07-14 Pat Name: Mery Anguiano Department: Room: Gender: Female Manufacture Specialist: Aletha Whitefus : 1960 Requested By: Juan Doyle Order Number: [id number] Gaurav MD: Nai Grubbs M.D. Interpretive Statements NAME OF STUDY: LEXISCAN SESTAMIBI STRESS TEST INDICATION: [Chest Pain, Weakness with exertion] PROCEDURE: At the baseline, the blood pressure was 163/78 mm Hg with a heart rate of 77 bpm. The electrocardiogram showed sinus rhythm, non specific ST depression.. ??? The Lexiscan was infused over a period of 20 seconds. A total of 0.4 milligrams of Lexiscan was infused. The stress phase was continued for a total of 5 minutes. Heart rate at the end of the stress phase was 85 bpm with a blood pressure of 155/73 mm Hg. The EKG at the peak infusion revealed no significant ST-T wave changes. ??? Sestamibi was injected 20 seconds after the Lexiscan infusion. ??? Blood pressure at the end of the recovery phase was 144/71 mm Hg with a heart rate of 84 beats per minute. ??? CONCLUSION: 1. No significant EKG changes with the LexiScan infusion. 2. No LexiScan induced chest pain or cardiac arrhythmia. 3. Normal blood pressure and heart rate response. 4. Sestamibi/sestamibi perfusion scan pending; see separate report. Electronically Signed On 07-18-2023 22:46:00 [employer]OCKSTITCH [employer]AT [employer]ER by Nai Grubbs M.D. [email or web address]
--- NOTE | 2023-07-14 09:12 | NMCV_ITS ---
NM elton perf SPECT r/s* [id number] Mery Anguiano Age: 63 Gender: F : 1960 Exam Date: 07/14/2023 09:57 Ordering Phys: Juan Vela MD Technologist: LINN Parra Exam Location: [facility] Indications: CHEST PAIN STRESS TEST Please see separate stress test report in [facility] for full findings IMAGE PROTOCOL Rest/Stress 1 Lexiscan Day Radiopharmaceutical Dose (mCi) Administration Site Administered by Rest: Tc-99m 10.7 IV LINN Zuñiga Sestamibi Stress:Tc-99m 32.7 IV LINN Parra Sestamibi Rest: 14-Jul-2023 60 Discovery 630 Stress: 14-Jul-2023 30 Discovery 630 0.4mg Lexiscan. Images obtained in supine and prone position. SPECT RESULTS Technical Quality: Excellent Raw Data Analysis: Normal Image Corrections: No attenuation or motion correction applied Summed Stress Score: 0 Summed Rest Score: 3 Summed Difference Score: 0 PERFUSION FINDINGS Small sized perfusion abnormality of mild severity of apical anterior and apical luna on rest images with improved tracer uptake on stress images. FUNCTIONAL RESULTS (calculated via Gated SPECT) Stress Image LV EF (%): 75 Stress EDV (mL):102 TID: 1.04 Stress ESV (mL):26 FUNCTIONAL FINDINGS: The left ventricle is normal in size. Transient Ischemia Dilatation of 1. The left ventricular ejection fraction is normal with a value of 75%. There is normal left ventricular wall thickening. Normal end diastolic and end systolic volumes. IMPRESSIONS 1. Myocardial perfusion imaging is normal. 2. Overall left ventricular systolic function is normal without regional wall motion abnormalities, LVEF=75%. 3. EKG portion of the study will be reported separately. 4. Scan indicates low risk for cardiac events. Nai Grubbs MD (Electronically Signed) Final Date: 19 July 2023 04:12 S
[2023-07-14] MEDS: regadenoson 0.4 Mg/5 ml Syringe IVP (10:34)
[2023-07-14 10:42] VITALS: BP 144/71; PULSE 84
== END 2023-07-14 08:45 | disposition home or self-care (01) ==
PROVIDERS: PCP Family Medicine; Visit Provider Family Medicine
DX: R07.9 Chest pain, unspecified (principal)
CPT/HCPCS: 36415; 78452; 93017; 96374; A9500; J2785

== ENCOUNTER → 2024-02-21 08:34 | Outpatient (BNVA) | payer MEDICARE, SELFPAY | PROVIDERS: PCP Family Medicine; Visit Provider Family Medicine | DX: Z51.81 Encounter for therapeutic drug level monitoring (principal); E53.8 Deficiency of other specified B group vitamins; R73.09 Other abnormal glucose; R20.0 Anesthesia of skin; M54.16 Radiculopathy, lumbar region; J44.9 Chronic obstructive pulmonary disease, unspecified; I10 Essential (primary) hypertension | CPT/HCPCS: 80053; 82607; 83036; 85025 ==

== ENCOUNTER → 2024-07-06 12:40 | Outpatient (BNVA) | payer MEDICARE, SELFPAY | PROVIDERS: PCP Family Medicine; Visit Provider Family Medicine | DX: Z13.220 Encounter for screening for lipoid disorders (principal); Z51.81 Encounter for therapeutic drug level monitoring; E55.9 Vitamin D deficiency, unspecified; I10 Essential (primary) hypertension; E87.6 Hypokalemia | CPT/HCPCS: 80053; 80061; 82306; 83735; 85025 ==

== ENCOUNTER → 2025-03-05 09:36 | Outpatient (BNVA) | payer MEDICARE, SELFPAY | PROVIDERS: PCP Family Medicine; Visit Provider Family Medicine | DX: Z00.00 Encounter for general adult medical examination without abnormal findings (principal); Z13.6 Encounter for screening for cardiovascular disorders; E55.9 Vitamin D deficiency, unspecified; E87.6 Hypokalemia; Z51.81 Encounter for therapeutic drug level monitoring; E53.8 Deficiency of other specified B group vitamins | CPT/HCPCS: 80053; 80061; 82306; 82607; 83735; 85025 ==